=== PATIENT | male | born 1945 | race Caucasian/White ===

== ENCOUNTER 2017-04-01 14:08 | Inpatient (IN) | payer MEDICAID ==
[2017-04-01 14:17] VITALS: BMI 28.5
--- NOTE | 2017-04-01 15:46 | ED PDOC ---
Arrival/HPI - General Chief Complaint: Fever Time Seen by Provider: 04/01/17 14:17 Historian: Patient - History of Present Illness Narrative History of Present Illness (Text): 04/01/17 14:32 Maddy Yee is a 71 year old male, whose past medical history includes Hypertension, Diabetes, diabetic neuropathy, Coronary Artery Disease, ESRD (on hemodyalisis Monday, Monday, Monday), presents to Emergency department complaining of chest discomfort on the left side. The patient was admitted to the hospital more than two weeks ago for chest discomfort, but findings were deemed non-cardiac. The chest discomfort has continued and patient notes it is worse when taking deep breaths. He also reports having mild cough and mild shortness of breath, though TORRES is noticeable. His daughter reports he has had minor relief for the past two days with nsaid use. Patient denies headache, fever, chills, nausea, vomiting, diarrhea, diaphoresis, jaw pain, back pain, lower extremity pain/swelling, or other complaints. Meter Technician: Dr. Thomson Weigher Operator: Dr. Fuentes Time/Duration: > week (2 weeks) Symptom Onset: Gradual Symptom Course: Unchanged (left chest discomfort ) Modifying Factors (Text): Chest pain is worse when taking deep breaths Context: Home Associated Symptoms (Text): mild cough and shortness of breath Past Medical History - Provider Review Nursing Documentation Reviewed: Yes - Cardiac Hx Hypertension: Yes - Endocrine/Metabolic Hx Diabetes Mellitus Type 2: Yes - Genitourinary/Gynecological Hx Prostate Problems: Yes - Psychiatric Hx Psychophysiologic Disorder: No Hx Substance Use: No Family/Social History - Physician Review Nursing Documentation Reviewed: Yes Family/Social History: Unknown Family HX Smoking Status: Never Smoked Hx Alcohol Use: No Hx Substance Use: No Allergies/Home Meds Allergies/Adverse Reactions: Allergies No Known Allergies Allergy (Verified 04/01/17 14:16) Home Medications: Home Meds Medication Instructions Recorded Confirmed Alogliptin Benzoate [Alogliptin] 12.5 mg PO DAILY 04/01/17 04/01/17 Aspirin [Ecotrin] 81 mg PO DAILY 04/01/17 04/01/17 Atorvastatin [Lipitor] 40 mg PO DAILY 04/01/17 04/01/17 B Complex W-C No.20/Folic Acid 1 cap PO DAILY 04/01/17 04/01/17 [Nephrocaps Softgel] Calcium Acetate [Phoslo] 2 tab PO TID 04/01/17 04/01/17 Darbepoetin Conrado [Aranesp] 40 mcg IV QWK 04/01/17 04/01/17 Docusate [Colace] 100 mg PO BID 04/01/17 04/01/17 Doxercalciferol [Hectorol (RENAL)] 3 mcg IV TTS 04/01/17 04/01/17 Glimepiride [amaRYL] 2 mg PO DAILY 04/01/17 04/01/17 Insulin Glargine, Recombina 15 units SC DAILY 04/01/17 04/01/17 [Lantus] Losartan [Cozaar] 25 mg PO DAILY 04/01/17 04/01/17 Pantoprazole [Protonix EC Tab] 40 mg PO DAILY 04/01/17 04/01/17 SITagliptin [Januvia] 25 mg PO DAILY 04/01/17 04/01/17 Tamsulosin [Flomax] 0.4 mg PO DAILY 04/01/17 04/01/17 amLODIPine [Norvasc] 5 mg PO DAILY 04/01/17 04/01/17 Review of Systems - Physician Review All systems were reviewed & negative as marked: Yes - Review of Systems Constitutional: Normal. absent: Fevers Eyes: Normal. absent: Vision Changes ENT: Normal Respiratory: SOB, Cough Cardiovascular: Chest Pain (left chest pain discomfort) Gastrointestinal: Normal. absent: Abdominal Pain, Diarrhea, Nausea, Vomiting Genitourinary Male: Normal. absent: Dysuria Musculoskeletal: Normal. absent: Back Pain Skin: Normal Neurological: Normal. absent: Headache, Dizziness, Speech Changes Endocrine: Normal. absent: Diaphoresis Hemo/Lymphatic: Normal Psychiatric: Normal Physical Exam Vital Signs Reviewed: Yes Vital Signs Temp Pulse Resp BP Pulse Ox 04/01/17 18:11 72 16 126/60 100 04/01/17 15:07 98.3 F 04/01/17 14:30 98.5 F 80 17 124/62 99 Temperature: Afebrile Blood Pressure: Normal Pulse: Regular Respiratory Rate: Normal Appearance: Positive for: Well-Appearing, Non-Toxic, Comfortable Pain Distress: None Mental Status: Positive for: Alert and Oriented X 3 - Systems Exam Head: Present: Atraumatic, Normocephalic Pupils: Present: PERRL Conjunctiva: Present: Normal Mouth: Present: Moist Mucous Membranes Pharnyx: Present: Normal. No: ERYTHEMA, EXUDATE Neck: Present: Normal Range of Motion Respiratory/Chest: Present: Decreased Breath Sounds (decreased breath sound at the left base). No: Accessory Muscle Use Cardiovascular: Present: Regular Rate and Rhythm, Murmurs, Normal S1, S2 Abdomen: Present: Normal Bowel Sounds. No: Tenderness, Distention, Peritoneal Signs Upper Extremity: Present: Normal Inspection. No: Cyanosis, Edema Lower Extremity: Present: Edema (+1 edema ) Neurological: Present: GCS=15, CN II-XII Intact, Speech Normal Skin: Present: Warm, Dry, Normal Color. No: Rashes Psychiatric: Present: Alert, Oriented x 3, Normal Insight, Normal Concentration Medical Decision Making ED Course and Treatment: 04/01/17 14:32 Impression: 71 year old male with left side pleuritic chest discomfort. Differential Diagnosis included but are not limited to: pleural fusion vs. musculoskeletal pain vs. pneumonia vs. cardiac Plan: -- EKG -- CT Chest without contrast -- Chest X-ray -- Labs -- Reassess and disposition Progress notes: EKG: Ordered, reviewed, and independently interpreted the EKG. Rate : 81 BPM Rhythm : NSR Interpretation : QRS 104 with borderline left axis deviation. No ST/T changes compared to 03/16/2017 Comparison : 03/16/2017 04/01/17 17:10 Chest X-ray: Creator : Quentin Delgado MD FINDINGS: LUNGS: There is opacification of the left mid to lower lung field which may in part be due to under penetration and marked cardiomegaly however underlying atelectasis/ infiltrate and effusion on may be present. Minimal right basilar atelectasis. PLEURA: As above. No apparent pneumothorax apparent. CARDIOVASCULAR: Marked cardiomegaly. OSSEOUS STRUCTURES: No significant abnormalities. VISUALIZED UPPER ABDOMEN: Normal. OTHER FINDINGS: None. IMPRESSION: There is opacification of the left mid to lower lung field which may in part be due to under penetration and marked cardiomegaly however underlying atelectasis/ infiltrate and effusion on may be present. Minimal right basilar atelectasis. 04/01/2017 17:37 CT chest: Creator : Quentin Delgado MD COMPARISON: Comparison made with chest radiograph obtained earlier same day FINDINGS: LUNGS: Seen to better advantage is moderate-sized left-sided effusion and left basilar atelectasis. There is a small right-sided effusion and minor right basilar atelectasis. MEDIASTINUM: Heart is mildly enlarged with a moderate - significant pericardial effusion. At ascending thoracic aorta measures approximately 3.6 and descending thoracic aorta measures approximately 2.8 cm. Pulmonary trunk measures approximately 2.55 cm few small nonspecific mediastinal lymph nodes. Central airways are midline and patent. No gross endoluminal lesions seen. There is a tiny hiatal hernia with slight wall thickening of the distal esophagus that could be due to protrusion gastric mucosa. Possibility of esophagitis not excluded. PLEURA: As above. No pneumothorax. BONES: The vertebral bodies exhibit normal stature. No evidence of acute or chronic compression fractures nor retropulsed fragments A-comm. Facets normally aligned. UPPER ABDOMEN:The liver exhibits a somewhat nodular contour. Rule out cirrhosis. OTHER FINDINGS: Minor changes of gynecomastia bilaterally IMPRESSION: Moderate to -large size pericardial effusion. Moderate to large left -sided effusion and mild left basilar atelectasis. . Small right-sided effusion and minor right basilar atelectasis. The liver exhibits a slightly nodular surface contour ; rule out cirrhosis. See above discussion for additional findings and details. Findings discussed with Dr. Smith at approximately 5:30 p.m. with written down and read back written down and read back verification. 04/01/17 19:40 Patient with noted history; labs already present from hemodialysis this morning. Hgb is 8.5, lower than previous; of significant note is the patient's moderate-large pericardial and pleural effusions on CT of the chest today. None of these were present on the CT chest done on 02/03/17. Per patient's daughter, he had an echo done outaptient about 4 weeks ago, which was unremarkable and CXR from recent admission showed NAD. Given these changes in findings, the patient will need observation on tele for imminent cardiology and renal eval - case was discussed with Dr. White, renal, who will arrange for a Monday hemodialysis session tomorrow and also discussed with Dr. Garcia, covering Dr. Carpenter, on-call cardiology. Case discusssed with Dr. Streeter. 04/01/17 21:02 Case was also discussed with the patient's daughter, who is a sheetmetal trades worker. - Lab Interpretations I have reviewed the lab results: Yes - RAD Interpretation Radiology Orders: 04/01/17 15:26 CHEST PORTABLE [RAD] Stat 04/01/17 15:27 CHEST W/O CONTRAST [CT] Stat - EKG Interpretation Interpreted by ED Physician: Yes Type: 12 lead EKG - Scribe Statement The provider has reviewed the documentation as recorded by the Scribe 04/01/2017 Matilda Carrington All medical record entries made by the Scribe were at my direction and personally dictated by me. I have reviewed the chart and agree that the record accurately reflects my personal performance of the history, physical exam, medical decision making, and the department course for this patient. I have also personally directed, reviewed, and agree with the discharge instructions and disposition. Disposition/Present on Arrival - Present on Arrival Any Indicators Present on Arrival: No History of DVT/PE: No History of Uncontrolled Diabetes: No Urinary Catheter: No History of Decub. Ulcer: No History Surgical Site Infection Following: None - Disposition Have Diagnosis and Disposition been Completed?: Yes Diagnosis: Pericardial effusion, Pleural effusion Disposition: HOSPITALIZED Disposition Time: 18:25 Patient Plan: Observation, Telemetry Condition: FAIR
--- NOTE | 2017-04-01 17:06 | RAD ---
HISTORY: L side chest pain COMPARISON: No prior. FINDINGS: LUNGS: There is opacification of the left mid to lower lung field which may in part be due to under penetration and marked cardiomegaly however underlying atelectasis/ infiltrate and effusion on may be present. Minimal right basilar atelectasis. PLEURA: As above. No apparent pneumothorax apparent. CARDIOVASCULAR: Marked cardiomegaly. OSSEOUS STRUCTURES: No significant abnormalities. VISUALIZED UPPER ABDOMEN: Normal. OTHER FINDINGS: None. IMPRESSION: There is opacification of the left mid to lower lung field which may in part be due to under penetration and marked cardiomegaly however underlying atelectasis/ infiltrate and effusion on may be present. Minimal right basilar atelectasis.
--- NOTE | 2017-04-01 17:35 | CT ---
PROCEDURE: CT chest dated 04/01/2017 HISTORY: L side chest pain COMPARISON: Comparison made with chest radiograph obtained earlier same day TECHNIQUE: Contiguous axial images were obtained through the chest without intravenous contrast enhancement. Sagittal and coronal reconstructions were performed. Radiation dose (DLP): 533.25 mGy-cm. This CT exam was performed using one or more of the following dose reduction techniques: Automated exposure control, adjustment of the mA and/or kV according to patient size, and/or use of iterative reconstruction technique. FINDINGS: LUNGS: Seen to better advantage is moderate-sized left-sided effusion and left basilar atelectasis. There is a small right-sided effusion and minor right basilar atelectasis. MEDIASTINUM: Heart is mildly enlarged with a moderate - significant pericardial effusion. At ascending thoracic aorta measures approximately 3.6 and descending thoracic aorta measures approximately 2.8 cm. Pulmonary trunk measures approximately 2.55 cm few small nonspecific mediastinal lymph nodes. Central airways are midline and patent. No gross endoluminal lesions seen. There is a tiny hiatal hernia with slight wall thickening of the distal esophagus that could be due to protrusion gastric mucosa. Possibility of esophagitis not excluded. PLEURA: As above. No pneumothorax. BONES: The vertebral bodies exhibit normal stature. No evidence of acute or chronic compression fractures nor retropulsed fragments A-comm. Facets normally aligned. UPPER ABDOMEN: The liver exhibits a somewhat nodular contour. Rule out cirrhosis. OTHER FINDINGS: Minor changes of gynecomastia bilaterally IMPRESSION: Moderate to -large size pericardial effusion. Moderate to large left-sided effusion and mild left basilar atelectasis. . Small right-sided effusion and minor right basilar atelectasis The liver exhibits a slightly nodular surface contour ; rule out cirrhosis See above discussion for additional findings and details. Findings discussed with Dr. Smith at approximately 5:30 p.m. with written down and read back written down and read back verification.
[2017-04-01] MEDS ORDERED: Naproxen 275 mg Tab PO SCH (22:15)
[2017-04-01] MEDS ORDERED: Linezolid 600 mg in D5W 300 ml 600 MG/300 ML BAG IVPB SCH (23:30)
--- NOTE | 2017-04-01 23:52 | CP.PCM.HP ---
<GONZALO CESPEDES - Last Filed: 04/02/17 04:58> History of Present Illness - History of Present Illness History of Present Illness: Gonzalo Cespedes DO PGY1 - Internal Medicine H&P - Night Float CC: Fever, cough HPI: 71 yo M with PMH of HTN, HLD, Diabetes, diabetic neuropathy, CAD, ESRD (on hemodyalisis T/T/Sat), BPH, and GERD presents to [facility] with complaints of subjective fever and cough that started today during dialysis. Temp was recorded at 99.3, oral. Dry cough associated with retrosternal CP started 3-4 weeks ago, unchanged since it began. Pain is non-radiating, sharp. Also admits to SOB with exertion. He has tried APAP and NSAIDS for the pain, which help. He has not tried anything for the cough. He denies recent illness, sick contacts, chills, N/V/D/C, abdominal pain, bloating, hemoptysis. 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 PMH: ESRD on HD, HLD, HTN, DM with neuropathy, CAD, BPH, GERD PSH: Cataracts, L arm AV fistula Meds: Lantus, Novalog, Alogliptin, Januvia, Carvedilol, Amlodipine, Losartan, Lipitor, Protonix, Aranesp, Colace, Doxercalciferol, Flomax, ASA Soc: Remote history of smoking tobacco, Denies EtOH, Denies Illicits Allergies: NKDA Fhx: None Present on Admission - Present on Admission Any Indicators Present on Admission: Yes History of DVT/PE: No History of Uncontrolled Diabetes: Yes Urinary Catheter: No Decubitus Ulcer Present: No Review of Systems - Constitutional Constitutional: Fever. absent: Chills, Headache, Night Sweats - EENT Eyes: absent: Blurred Vision, Change in Vision Ears: absent: Decreased Hearing, Ear Pain Nose/Mouth/Throat: absent: Epistaxis, Nasal Congestion - Cardiovascular Cardiovascular: Chest Pain. absent: Irregular Heart Rhythm, Pain Radiating to Arm/Neck/Jaw, Leg Edema, Radiating Pain - Respiratory Respiratory: Cough, Dyspnea, Pain with Coughing. absent: Hemoptysis, Dyspnea on Exertion - Gastrointestinal Gastrointestinal: absent: Abdominal Pain, Dyspepsia, Heartburn, Hematemesis, Hematochezia - Genitourinary Genitourinary: absent: Change in Urinary Stream, Dysuria, Hematuria - Musculoskeletal Musculoskeletal: absent: Back Pain, Muscle Weakness - Integumentary Integumentary: absent: Rash - Neurological Neurological: absent: Behavioral Changes, Headaches - Psychiatric Psychiatric: absent: Behavioral Changes, Confusion - Hematologic/Lymphatic Hematologic: absent: Easy Bleeding, Easy Bruising Past Patient History - Past Social History Smoking Status: Never Smoked - CARDIAC Hx Cardiac Disorders: Yes - RENAL Hx Chronic Kidney Disease: Yes Hx Dialysis: Yes - ENDOCRINE/METABOLIC Hx Diabetes Mellitus Type 1: Yes - MUSCULOSKELETAL/RHEUMATOLOGICAL Hx Musculoskeletal Disorders: No - GASTROINTESTINAL Hx Gastrointestinal Disorders: No - GENITOURINARY/GYNECOLOGICAL Hx Prostate Problems: Yes - PSYCHIATRIC Hx Psychophysiologic Disorder: No - SURGICAL HISTORY Hx Surgeries: No Meds Allergies/Adverse Reactions: Allergies Allergy/AdvReac Type Severity Reaction Status Date / Time No Known Allergies Allergy Verified 04/01/17 14:16 Physical Exam - Constitutional Appears: Non-toxic, Chronically Ill Additional comments: In mild distress - Head Exam Head Exam: ATRAUMATIC, NORMOCEPHALIC - Eye Exam Eye Exam: EOMI, Normal appearance - ENT Exam ENT Exam: Mucous Membranes Moist - Neck Exam Neck exam: Positive for: Normal Inspection. Negative for: Meningismus - Respiratory Exam Respiratory Exam: absent: Rales, Rhonchi, Wheezes - Expanded Respiratory Exam Expanded Respiratory: decreased breath sounds: Left (Middle and lower), dullness to percussion: Left (Middle and lower) - Cardiovascular Exam Additional comments: Muffled heart sounds - GI/Abdominal Exam GI & Abdominal Exam: Distended, Soft. absent: Firm, Guarding, Rebound, Rigid, Tenderness - Extremities Exam Extremities exam: Positive for: normal inspection. Negative for: pedal edema - Back Exam Back exam: NORMAL INSPECTION. absent: tenderness, vertebral tenderness - Neurological Exam Neurological exam: Alert, Oriented x3 - Psychiatric Exam Psychiatric exam: Normal Affect, Normal Mood - Skin Skin Exam: Dry, Intact Results - Vital Signs Recent Vital Signs: Last Vital Signs Temp 101 F H 04/01/17 22:03 Pulse 90 04/01/17 22:03 Resp 21 04/01/17 22:03 BP 155/72 H 04/01/17 22:03 Pulse Ox 95 04/01/17 22:03 - Imaging and Cardiology CT scan - chest Status: Report reviewed by me (Pericardial effusion. Pleural effusion) Assessment & Plan - Assessment and Plan (Free Text) Assessment: 71 yo M with PMH of HTN, HLD, Diabetes, diabetic neuropathy, CAD, ESRD (on hemodyalisis T/W/Sat), BPH, and GERD presented to [facility] with complaints of subjective fever and cough that started today during dialysis. CT chest in ED shows moderate pericardial effusion, moderate left pleural effusion and basilar atalectasis, mild right pleural effusion and atalectasis. Later, became febrile to 101 F. Plan: 1. Cough and CP - Likely 2/2 to chronic pericardial and pleural effusion 2/2 uremia vs infectious - Chest XR significant for cardiomegaly and pleural effusion. Chest CT significant for moderate pericardial effusion and moderate left sided pleural effusion and mild right sided pleural effusion. - First and second Troponins negative, pending repeat Troponin. - Serial EKG - Nephro consulted (Christopher), plan for HD tomorrow and Monday - Consult Cardio (Pauline) - Daily CBC and CMP - Incentive spirometry - Ordered echocardiogram 2. FUO - After encounter, patient spiked fever to 101. History concerning for hospital acquired infection - Ordered blood culture, UA, urine C&S - Start Linezolid, PRN APAP - Consult ID (Sathish) 3. ESRD on HD - HD tomorrow and Monday - Resume home meds - Consult nephrology (Christopher) 4. Hx of CAD, HTN, HLD, DM - Resume home meds GI/DVT Ppx - Protonix and SCD Patient seen, discussed, and reviewed with senior resident Dr. Redman PGY2 and attending Dr. Streeter. <Syl ARREDONDO,Abrahan - Last Filed: 04/02/17 08:20> Results - Vital Signs Recent Vital Signs: Last Vital Signs Temp 97.9 F 04/02/17 06:00 Pulse 75 04/02/17 06:00 Resp 20 04/02/17 06:00 BP 146/77 04/02/17 06:00 Pulse Ox 97 04/02/17 06:00 - Labs Result Diagrams: 04/02/17 06:30 04/02/17 06:30 Labs: Laboratory Results - last 24 hr 04/01/17 04/02/17 04/02/17 23:25 00:19 06:30 WBC RBC Hgb Hct MCV MCH MCHC RDW Plt Count MPV Gran % Lymph % (Auto) [place] % (Auto) Eos % (Auto) Baso % (Auto) Gran # Lymph # [place] # Eos # Baso # pO2 VBG pH VBG pCO2 VBG HCO3 VBG O2 Sat (Calc) VBG Base Excess Sodium 138 Potassium 4.3 Chloride 97 L Carbon Dioxide 31 Anion Gap 14 BUN 35 H Creatinine 6.5 H Est GFR ( Amer) 10 Est GFR (Non-Af Amer) 8 POC Glucose (mg/dL) 263 H Random Glucose 149 H Lactic Acid Calcium 8.5 Total Bilirubin 0.6 AST 33 ALT 20 Alkaline Phosphatase 114 Troponin I < 0.01 < 0.01 Total Protein 6.8 Albumin 3.1 Globulin 3.8 Albumin/Globulin Ratio 0.8 L 04/02/17 04/02/17 04/02/17 06:30 06:30 06:30 WBC 10.1 RBC 3.31 L Hgb 9.0 L Hct 28.0 L MCV 84.6 MCH 27.2 MCHC 32.1 RDW 14.9 H Plt Count 302 MPV 9.1 Gran % 72.0 H Lymph % (Auto) 12.3 L [place] % (Auto) 12.6 H Eos % (Auto) 2.9 Baso % (Auto) 0.2 Gran # 7.29 H Lymph # 1.3 [place] # 1.3 H Eos # 0.3 Baso # 0.02 pO2 49 VBG pH 7.39 VBG pCO2 53.0 VBG HCO3 32.1 H VBG O2 Sat (Calc) 89.0 H VBG Base Excess 5.7 H Sodium Potassium Chloride Carbon Dioxide Anion Gap BUN Creatinine Est GFR ( Amer) Est GFR (Non-Af Amer) POC Glucose (mg/dL) Random Glucose Lactic Acid 0.6 L Calcium Total Bilirubin AST ALT Alkaline Phosphatase Troponin I Total Protein Albumin Globulin Albumin/Globulin Ratio Attending/Attestation - Attestation I have personally seen and examined this patient.: Yes I have fully participated in the care of the patient.: Yes I have reviewed all pertinent clinical information: Yes Notes (Text): 04/02/17 08:14 -I agree with the above H&P completed by the resident physician with the following additions and/or changes: The patient is a 71 year old [place] man with a history of ESRD (T/W/Sat), BPH , GERD, CAD, HTN and IDDM who is being admitted with pleural effusion, pericardial effusion and potential healthcare-associated PNA. The effusions may be simply related to fluid overload from ESRD (vs infectious). He will therefore undergo dialysis in the morning by Dr. White to see if there is improvement in the effusions afterwards. Also, a 2D-echo and cards consult has been placed to further evaluate the pericardial effusion. Lastly, since the patient spiked a temp in the ED and given his symptoms of cough (as well as his recent hospital admission), we will start empiric IV antibiotics overnight and consult ID.
[2017-04-02] MEDS: Insulin Detemir 100 units/ml Vial (Levemir) SC SCH ×3 (00:20→21:40)
[2017-04-02] MEDS ORDERED: Pantoprazole 40 mg EC Tab PO SCH ×2 (06:00→10:00)
[2017-04-02] MEDS ORDERED: Piperacillin/Tazobact 2.25gm 2.25 GM/100 ML BAG IVPB SCH (06:00)
[2017-04-02 06:57] LABS: BASO # 0.02 K/mm3 (0.0-2.0); BASO % 0.2 % (0.0-3.0); EOS # 0.3 (0.0-0.7); EOS % 2.9 % (1.5-5.0); GRAN # 7.29 (1.4-6.5); LYMPH # 1.3 (1.2-3.4); LYMPH % 12.3 % (22.0-35.0); MEAN CELL VOLUME 84.6 fL (80.0-105.0); MEAN CORPUSCULAR HEMOGLOBIN 27.2 pg (25.0-35.0); MEAN CORPUSCULAR HGB CONC 32.1 g/dl (31.0-37.0); MEAN PLATELET VOLUME 9.1 fl (7.0-11.0); MONO # 1.3 (0.1-0.6); MONO % 12.6 % (1.0-6.0); PLATELET COUNT 302 10^3/uL (120.0-450.0); RBC 3.31 10^6/uL (3.5-6.1); RED CELL DISTRIBUTION WIDTH 14.9 % (11.5-14.5); WHITE BLOOD COUNT 10.1 10^3/ul (4.5-11.0)
[2017-04-02 07:13] LABS: VENOUS BLOOD GAS BASE EXCESS 5.7 mmol/L (0.0-2.0); VENOUS BLOOD GAS PO2 49 mm/Hg (30-55); VENOUS BLOOD PH 7.39 (7.32-7.43)
[2017-04-02] MEDS ORDERED: Vancomycin 1gm in NS 250ml 1 GM/250 ML BAG IVPB STA (07:13)
[2017-04-02 07:21] LABS: ALB/GLOB RATIO 0.8 (1.1-1.8); ALBUMIN 3.1 g/dL (3.0-4.8); ALT/SGPT 20 U/L (7-56); AST/SGOT 33 U/L (15-59); BLOOD UREA NITROGEN 35 mg/dL (7-21); CALCIUM 8.5 mg/dL (8.4-10.5); GFR AFRICAN-AMERICAN 10; GFR NON-AFRICAN AMERICAN 8
[2017-04-02 07:35] LABS: TROPONIN I < 0.01 ng/mL
[2017-04-02] MEDS: Insulin Regular 1 UNITS/0.01 ML ML SC SCH ×3 (08:40→17:17)
[2017-04-02] MEDS ORDERED: INSULIN GLARGINE RECOMBINA SC SCH (10:00)
--- NOTE | 2017-04-02 10:19 | CARD ---
APPROVED REPORT EKG Measurement Heart [id number] <Conclusion> Normal sinus rhythm Normal ECG
--- NOTE | 2017-04-02 10:30 | CARD ---
APPROVED REPORT EKG Measurement Heart [id number] <Conclusion> Normal sinus rhythm Low voltage QRS Borderline ECG
--- NOTE | 2017-04-02 10:32 | CP.PCM.CON ---
History of Present Illness - History of Present Illness History of Present Illness: renal consult note 71 yo M with PMH of HTN, HLD, Diabetes, diabetic neuropathy, CAD, ESRD (on hemodyalisis T/T/Sat), BPH, and GERD is admitted with low grade fever,and pleuritic chest pain. he finished his dialysis today. on admission underwent Ct scan which showed moderate sized new pericardial effusion. he is seen and examined on dialysis today. he reports pain is controlled. He has been compliant with his dialysis session however has had high pre hd BUN and failed his dialysis clearance earlier in march Review of Systems - Review of Systems All systems: reviewed and no additional remarkable complaints except Past Patient History - Past Social History Smoking Status: Never Smoked - CARDIAC Hx Cardiac Disorders: Yes - RENAL Hx Chronic Kidney Disease: Yes Hx Dialysis: Yes - ENDOCRINE/METABOLIC Hx Diabetes Mellitus Type 1: Yes - MUSCULOSKELETAL/RHEUMATOLOGICAL Hx Musculoskeletal Disorders: No - GASTROINTESTINAL Hx Gastrointestinal Disorders: No - GENITOURINARY/GYNECOLOGICAL Hx Prostate Problems: Yes - PSYCHIATRIC Hx Psychophysiologic Disorder: No - SURGICAL HISTORY Hx Surgeries: No Meds Allergies/Adverse Reactions: Allergies Allergy/AdvReac Type Severity Reaction Status Date / Time No Known Allergies Allergy Verified 04/01/17 14:16 - Medications Medications: Current Medications Acetaminophen (Tylenol 325mg Tab) 650 mg PO Q4H PRN PRN Reason: Fever >100.4 F Aspirin (Aspirin Chewable) 81 mg PO DAILY [facility] Calcium Acetate (Phoslo) 1,334 mg PO WM [facility] Last Admin: 04/02/17 08:39 Dose: 1,334 mg Carvedilol (Coreg) 12.5 mg PO BID [facility] Darbepoetin Conrado (Aranesp) 40 mcg IVP QWK [facility] Docusate Sodium (Colace) 100 mg PO BID [facility] Doxercalciferol (Hectorol) 3 mcg IV TTS [facility] Heparin Sodium (Porcine) (Heparin) 5,000 units SC Q12 [facility] PRN Reason: Protocol Cefepime HCl (Maxipime 1gm) 1 gm in 100 mls @ 100 mls/hr IVPB Q24H [facility] PRN Reason: Protocol Doxycycline Hyclate 100 mg/ (Sodium Chloride) 100 mls @ 100 mls/hr IVPB Q12 [facility] PRN Reason: Protocol Insulin Detemir (Levemir) 7 unit SC HS [facility] Last Admin: 04/02/17 00:20 Dose: 7 unit Insulin Detemir (Levemir) 8 unit SC QAM [facility] Insulin Human Regular (Humulin R) 6 units SC AC [facility] Last Admin: 04/02/17 08:40 Dose: 6 units Losartan Potassium (Cozaar) 25 mg PO DAILY [facility] Pantoprazole Sodium (Protonix Inj) 40 mg IVP DAILY [facility] Tamsulosin HCl (Flomax) 0.4 mg PO DAILY [facility] Vitamin B Complex/Vit C/Folic Acid (Nephro-Gabino) 1 tab PO DAILY [facility] Physical Exam - Constitutional Appears: Non-toxic, No Acute Distress - Head Exam Head Exam: NORMAL INSPECTION - Eye Exam Eye Exam: Normal appearance - ENT Exam ENT Exam: Mucous Membranes Moist - Neck Exam Neck exam: Positive for: Normal Inspection - Respiratory Exam Respiratory Exam: NORMAL BREATHING PATTERN - Cardiovascular Exam Cardiovascular Exam: +S1, +S2 - GI/Abdominal Exam GI & Abdominal Exam: Soft - Extremities Exam Extremities exam: Positive for: normal inspection - Neurological Exam Neurological exam: Alert, Oriented x3 - Psychiatric Exam Psychiatric exam: Normal Affect - Skin Skin Exam: Dry Additional comments: seen and examined on dialysis Results - Vital Signs Recent Vital Signs: Last Vital Signs Temp 97.9 F 04/02/17 06:00 Pulse 75 04/02/17 06:00 Resp 20 04/02/17 06:00 BP 146/77 04/02/17 06:00 Pulse Ox 97 04/02/17 06:00 - Labs Result Diagrams: 04/03/17 06:30 04/03/17 06:30 Labs: Laboratory Results - last 24 hr 04/01/17 04/02/17 04/02/17 23:25 00:19 06:30 WBC RBC Hgb Hct MCV MCH MCHC RDW Plt Count MPV Gran % Lymph % (Auto) [place] % (Auto) Eos % (Auto) Baso % (Auto) Gran # Lymph # [place] # Eos # Baso # pO2 VBG pH VBG pCO2 VBG HCO3 VBG O2 Sat (Calc) VBG Base Excess Sodium 138 Potassium 4.3 Chloride 97 L Carbon Dioxide 31 Anion Gap 14 BUN 35 H Creatinine 6.5 H Est GFR ( Amer) 10 Est GFR (Non-Af Amer) 8 POC Glucose (mg/dL) 263 H Random Glucose 149 H Lactic Acid Calcium 8.5 Total Bilirubin 0.6 AST 33 ALT 20 Alkaline Phosphatase 114 Troponin I < 0.01 < 0.01 Total Protein 6.8 Albumin 3.1 Globulin 3.8 Albumin/Globulin Ratio 0.8 L 04/02/17 04/02/17 04/02/17 06:30 06:30 06:30 WBC 10.1 RBC 3.31 L Hgb 9.0 L Hct 28.0 L MCV 84.6 MCH 27.2 MCHC 32.1 RDW 14.9 H Plt Count 302 MPV 9.1 Gran % 72.0 H Lymph % (Auto) 12.3 L [place] % (Auto) 12.6 H Eos % (Auto) 2.9 Baso % (Auto) 0.2 Gran # 7.29 H Lymph # 1.3 [place] # 1.3 H Eos # 0.3 Baso # 0.02 pO2 49 VBG pH 7.39 VBG pCO2 53.0 VBG HCO3 32.1 H VBG O2 Sat (Calc) 89.0 H VBG Base Excess 5.7 H Sodium Potassium Chloride Carbon Dioxide Anion Gap BUN Creatinine Est GFR ( Amer) Est GFR (Non-Af Amer) POC Glucose (mg/dL) Random Glucose Lactic Acid 0.6 L Calcium Total Bilirubin AST ALT Alkaline Phosphatase Troponin I Total Protein Albumin Globulin Albumin/Globulin Ratio 04/02/17 07:28 WBC RBC Hgb Hct MCV MCH MCHC RDW Plt Count MPV Gran % Lymph % (Auto) [place] % (Auto) Eos % (Auto) Baso % (Auto) Gran # Lymph # [place] # Eos # Baso # pO2 VBG pH VBG pCO2 VBG HCO3 VBG O2 Sat (Calc) VBG Base Excess Sodium Potassium Chloride Carbon Dioxide Anion Gap BUN Creatinine Est GFR ( Amer) Est GFR (Non-Af Amer) POC Glucose (mg/dL) 147 H Random Glucose Lactic Acid Calcium Total Bilirubin AST ALT Alkaline Phosphatase Troponin I Total Protein Albumin Globulin Albumin/Globulin Ratio Assessment & Plan - Assessment and Plan (Free Text) Plan: esrd/pericardial effusion/htn/dm will do extra hd today for clearance lytes reviewed UF minimal as bp soft continue binders anemia: epo per opt dose will review his opt dialysis script on monday
[2017-04-02] MEDS: Cefepime 1gm in NS 100ml 1 GM/100 ML BAG IVPB SCH (10:45)
--- NOTE | 2017-04-02 13:13 | CP.PCM.CON ---
History of Present Illness - History of Present Illness History of Present Illness: 71 year old male with PMH of ESRD on HD, CAD, benign prostatic hyperplasia, GERD , dyslipidemia, DM with peripheral neuropathy, HTN came in to [facility] complaining of subjective fevers associated with shortness of breath and dry cough. The has occasional chest pain as well as dyspnea on exertion. He denies sick contacts, no headache or dizziness, no sore throat, no rhinorrhea, no body aches, no abdominal pain, no diarrhea, no dysuria. In the ED, CXR showed left sided pleural effusion and pericardial effusion. Infectious Diseases consult is requested to further evaluate and manage. Review of Systems - Review of Systems All systems: reviewed and no additional remarkable complaints except (as per HPI ) Past Patient History - Past Social History Smoking Status: Never Smoked - CARDIAC Hx Cardiac Disorders: Yes - RENAL Hx Chronic Kidney Disease: Yes Hx Dialysis: Yes - ENDOCRINE/METABOLIC Hx Diabetes Mellitus Type 1: Yes - MUSCULOSKELETAL/RHEUMATOLOGICAL Hx Musculoskeletal Disorders: No - GASTROINTESTINAL Hx Gastrointestinal Disorders: No - GENITOURINARY/GYNECOLOGICAL Hx Prostate Problems: Yes - PSYCHIATRIC Hx Psychophysiologic Disorder: No - SURGICAL HISTORY Hx Surgeries: No Meds Allergies/Adverse Reactions: Allergies Allergy/AdvReac Type Severity Reaction Status Date / Time No Known Allergies Allergy Verified 04/01/17 14:16 - Medications Medications: Current Medications Acetaminophen (Tylenol 325mg Tab) 650 mg PO Q4H PRN PRN Reason: Fever >100.4 F Aspirin (Aspirin Chewable) 81 mg PO DAILY [facility] Calcium Acetate (Phoslo) 1,334 mg PO WM [facility] Carvedilol (Coreg) 12.5 mg PO BID [facility] Darbepoetin Conrado (Aranesp) 40 mcg IVP QWK [facility] Docusate Sodium (Colace) 100 mg PO BID [facility] Doxercalciferol (Hectorol) 3 mcg IV TTS [facility] Heparin Sodium (Porcine) (Heparin) 5,000 units SC Q12 [facility] PRN Reason: Protocol Piperacillin Sod/Tazobactam Sod (Zosyn 2.25 Gm In 0.9% 100 Ml) 2.25 gm in 100 mls @ 100 mls/hr IVPB Q6 [facility] PRN Reason: Protocol Stop: 04/02/17 12:59 Last Admin: 04/02/17 06:24 Dose: 100 mls/hr Insulin Detemir (Levemir) 7 unit SC HS [facility] Last Admin: 04/02/17 00:20 Dose: 7 unit Insulin Detemir (Levemir) 8 unit SC QAM [facility] Insulin Human Regular (Humulin R) 6 units SC AC [facility] Losartan Potassium (Cozaar) 25 mg PO DAILY [facility] Pantoprazole Sodium (Protonix Inj) 40 mg IVP DAILY [facility] Tamsulosin HCl (Flomax) 0.4 mg PO DAILY [facility] Vitamin B Complex/Vit C/Folic Acid (Nephro-Gabino) 1 tab PO DAILY [facility] Physical Exam - Constitutional Appears: Non-toxic, No Acute Distress - Head Exam Head Exam: NORMAL INSPECTION - ENT Exam ENT Exam: Mucous Membranes Moist - Neck Exam Neck exam: Negative for: Lymphadenopathy, Meningismus - Respiratory Exam Respiratory Exam: Decreased Breath Sounds - Cardiovascular Exam Cardiovascular Exam: +S1, +S2 - GI/Abdominal Exam GI & Abdominal Exam: Soft. absent: Tenderness Results - Vital Signs Recent Vital Signs: Last Vital Signs Temp 97.9 F 04/02/17 06:00 Pulse 75 04/02/17 06:00 Resp 20 04/02/17 06:00 BP 146/77 04/02/17 06:00 Pulse Ox 97 04/02/17 06:00 - Labs Result Diagrams: 04/02/17 06:30 04/02/17 06:30 Labs: Laboratory Results - last 24 hr 04/01/17 04/02/17 04/02/17 23:25 00:19 06:30 WBC 10.1 RBC 3.31 L Hgb 9.0 L Hct 28.0 L MCV 84.6 MCH 27.2 MCHC 32.1 RDW 14.9 H Plt Count 302 MPV 9.1 Gran % 72.0 H Lymph % (Auto) 12.3 L [place] % (Auto) 12.6 H Eos % (Auto) 2.9 Baso % (Auto) 0.2 Gran # 7.29 H Lymph # 1.3 [place] # 1.3 H Eos # 0.3 Baso # 0.02 POC Glucose (mg/dL) 263 H Troponin I < 0.01 Assessment & Plan - Assessment and Plan (Free Text) Plan: Assessment Shortness of breath and chest pain, consider fluid overload with associated left sided pleural effusion and pericardial effusion, R/O HCAP, R/O uremic pericarditis ESRD on HD CAD benign prostatic hyperplasia GERD dyslipidemia DM with peripheral neuropathy HTN Plan Gave a dose of IV Vancomycin and started Cefepime and Doxycycline pending blood cx, PCT; reviewed CT chest which showed the pericardial effusion and left sided effusion - follow up Cardiology and Pulmonary recommendations will monitor clinically
--- NOTE | 2017-04-02 13:43 | CP.PCM.PN ---
<Orestes Barahona - Last Filed: 04/02/17 16:10> Subjective - Date & Time of Evaluation Date of Evaluation: 04/02/17 Time of Evaluation: 13:39 - Subjective Subjective: Medicine progress note for Dr. Reyes - Orestes Barahona PGY2 Patient seen and examined at bedside this morning. Reported that he presented to the ED with subjective fevers, non-productive cough that was associated with substernal chest pain. This morning he reports feeling well and denied chest pain, palpitations, SOB. Tmax on admission has been 101F, presently normothermic. CT reviewed and revealed pericardial and pleural effusion. Discussed case with cardiology, Dr. Garcia who recommended echocardiogram for further evaluation. Objective - Vital Signs/Intake and Output Vital Signs (last 24 hours): Temp Pulse Resp BP Pulse Ox 97.8 F 73 16 155/73 H 97 04/02/17 12:00 04/02/17 12:00 04/02/17 12:00 04/02/17 12:00 04/02/17 06:00 Intake and Output: 04/02/17 04/02/17 06:59 18:59 Intake Total 240 Output Total 0 Balance 240 - Medications Medications: Current Medications Acetaminophen (Tylenol 325mg Tab) 650 mg PO Q4H PRN PRN Reason: Fever >100.4 F Aspirin (Aspirin Chewable) 81 mg PO DAILY [facility] Calcium Acetate (Phoslo) 1,334 mg PO WM [facility] Last Admin: 04/02/17 08:39 Dose: 1,334 mg Carvedilol (Coreg) 12.5 mg PO BID [facility] Darbepoetin Conrado (Aranesp) 40 mcg IVP QWK [facility] Docusate Sodium (Colace) 100 mg PO BID [facility] Doxercalciferol (Hectorol) 3 mcg IV TTS [facility] Heparin Sodium (Porcine) (Heparin) 5,000 units SC Q12 [facility] PRN Reason: Protocol Last Admin: 04/02/17 10:43 Dose: 5,000 units Cefepime HCl (Maxipime 1gm) 1 gm in 100 mls @ 100 mls/hr IVPB Q24H [facility] PRN Reason: Protocol Last Admin: 04/02/17 10:45 Dose: 100 mls/hr Doxycycline Hyclate 100 mg/ (Sodium Chloride) 100 mls @ 100 mls/hr IVPB Q12 [facility] PRN Reason: Protocol Insulin Detemir (Levemir) 7 unit SC HS [facility] Last Admin: 04/02/17 00:20 Dose: 7 unit Insulin Detemir (Levemir) 8 unit SC QAM [facility] Last Admin: 04/02/17 10:45 Dose: 8 unit Insulin Human Regular (Humulin R) 6 units SC AC [facility] Last Admin: 04/02/17 08:40 Dose: 6 units Losartan Potassium (Cozaar) 25 mg PO DAILY [facility] Pantoprazole Sodium (Protonix Inj) 40 mg IVP DAILY [facility] Tamsulosin HCl (Flomax) 0.4 mg PO DAILY [facility] Vitamin B Complex/Vit C/Folic Acid (Nephro-Gabino) 1 tab PO DAILY [facility] - Labs Labs: 04/02/17 06:30 04/02/17 06:30 - Constitutional Appears: Non-toxic, No Acute Distress - Head Exam Head Exam: ATRAUMATIC, NORMAL INSPECTION, NORMOCEPHALIC - Eye Exam Eye Exam: EOMI, PERRL - ENT Exam ENT Exam: Mucous Membranes Moist - Respiratory Exam Respiratory Exam: Decreased Breath Sounds. absent: Rales, Rhonchi, Wheezes Additional comments: decreased breath sounds at the bases bilaterally - Cardiovascular Exam Cardiovascular Exam: RRR, +S1, +S2. absent: Gallop, Rubs - GI/Abdominal Exam GI & Abdominal Exam: absent: Distended, Firm, Guarding, Rigid, Tenderness, Rebound - Neurological Exam Neurological Exam: Alert, Awake, Oriented x3 - Psychiatric Exam Psychiatric exam: Normal Affect, Normal Mood - Skin Skin Exam: Dry, Intact, Normal Color, Warm Assessment and Plan - Assessment and Plan (Free Text) Plan: 71yo male with history of HTN, HLD, Diabetes, diabetic neuropathy, CAD, ESRD on HD (T/W/Sat), BPH, and GERD presented c/o subjective fever and cough. 1. Chest pain -Likely secondary to pericardial and pleural effusion 2/2 uremia vs infectious -EKG reviewed; no acute ST-T wave changes; NSR at 81bpm -CXR reviewed; see below -Chest CT revealed moderate to large pericardial effusion, moderate to large left sided pleural effusion and mild left sided basilar atelectasis; small right -sided effusion and minor right basilar atelectasis; liver exhibits slightly nodular contour (see full report) -Troponin negative x2 -Case discussed with cardiology, Dr. Garcia - pending echocardiogram for further recs -Nephrology consulted, patient to be scheduled for HD today and Monday 2. Fever -Possibly secondary to chronic atelectasis vs HCAP -Tmax of 101F on admission thus far -Chest xray revealed opacification of the left mid to lower lung field which may be due to under penetration and cardiomegaly however underlying atelectasis/ infiltrate and effusion may be present; minimal right basilar atelectasis (see full report) -Lactic acid within normal limits -Procalcitonin within normal limits -Blood culture pending -Patient given a dose of vancomycin as well as started on cefepime and doxycycline per ID recommendations -Legionella antigen pending 3. ESRD on HD -Patient scheduled for HD sessions per nephrology recommendations -Continue home medications -Renal diet 4. Hx of CAD, HTN, HLD, DM, BPH, Anemia -Resume home meds GI/DVT Prophylaxis -Protonix/SCD's Patient seen, discussed, and reviewed with Dr. Reyes <Praful Reyes - Last Filed: 04/03/17 15:21> Objective - Vital Signs/Intake and Output Vital Signs (last 24 hours): Temp Pulse Resp BP Pulse Ox 98.5 F 80 20 149/70 92 L 04/03/17 11:53 04/03/17 14:00 04/03/17 11:53 04/03/17 11:53 04/03/17 05:45 - Medications Medications: Current Medications Acetaminophen (Tylenol 325mg Tab) 650 mg PO Q4H PRN PRN Reason: Fever >100.4 F Last Admin: 04/03/17 06:21 Dose: 650 mg Aspirin (Aspirin Chewable) 81 mg PO DAILY [facility] Last Admin: 04/03/17 09:46 Dose: 81 mg Calcium Acetate (Phoslo) 1,334 mg PO WM [facility] Last Admin: 04/03/17 13:12 Dose: 1,334 mg Carvedilol (Coreg) 12.5 mg PO BID [facility] Last Admin: 04/03/17 09:46 Dose: 12.5 mg Darbepoetin Conrado (Aranesp) 60 mcg IVP QWK [facility] Docusate Sodium (Colace) 100 mg PO BID [facility] Last Admin: 04/03/17 09:46 Dose: 100 mg Doxercalciferol (Hectorol) 3 mcg IV TTS [facility] Cefepime HCl (Maxipime 1gm) 1 gm in 100 mls @ 100 mls/hr IVPB Q24H [facility] PRN Reason: Protocol Last Admin: 04/03/17 06:21 Dose: 100 mls/hr Doxycycline Hyclate 100 mg/ (Sodium Chloride) 100 mls @ 100 mls/hr IVPB Q12 [facility] PRN Reason: Protocol Last Admin: 04/03/17 09:49 Dose: 100 mls/hr Insulin Detemir (Levemir) 7 unit SC HS [facility] Last Admin: 04/02/17 21:40 Dose: Not Given Insulin Detemir (Levemir) 8 unit SC QAM [facility] Last Admin: 04/03/17 09:47 Dose: 8 unit Insulin Human Regular (Humulin R) 6 units SC AC [facility] Last Admin: 04/03/17 13:12 Dose: 6 units Losartan Potassium (Cozaar) 25 mg PO DAILY [facility] Last Admin: 04/03/17 09:46 Dose: 25 mg Pantoprazole Sodium (Protonix Ec Tab) 40 mg PO 0600 [facility] Last Admin: 04/03/17 06:21 Dose: 40 mg Tamsulosin HCl (Flomax) 0.4 mg PO DAILY [facility] Last Admin: 04/03/17 09:46 Dose: 0.4 mg Vitamin B Complex/Vit C/Folic Acid (Nephro-Gabino) 1 tab PO DAILY [facility] Last Admin: 04/03/17 09:46 Dose: 1 tab Attending/Attestation - Attestation I have personally seen and examined this patient.: Yes I have fully participated in the care of the patient.: Yes I have reviewed all pertinent clinical information, including history, physical exam and plan: Yes Notes (Text): 04/03/17 15:18 attending note; Patient seen and examined with resident. Patient is a 71 year old Male with PMH of HTN, HLD, Diabetes, diabetic neuropathy, CAD, ESRD (on hemodyalisis T/T/Sat), BPH, and GERD is admitted with low grade fever,and pleuritic chest pain. CT showed left-sided pleural effusion and pericardial effusion. Patient will get extra hemodialysis today. echocardiogram requested. Cardiology evaluation requested. Fever; currently on doxycycline and Maxipime. ID evaluation appreciated. upon discharge the patient will follow-up with PMD . Patient will continue dialysis with Dr. Thomson. patient will follow-up with cardiology . 04/03/17 15:21
[2017-04-02] MEDS: Multivitamin Vitamin B Complex (Nephro-Vite) Tab PO SCH (17:14)
[2017-04-03 01:53] LABS: URINE BILIRUBIN NEGATIVE (NEGATIVE); URINE BLOOD NEGATIVE (NEGATIVE); URINE GLUCOSE (UA) 250 mg/dL (NEGATIVE); URINE LEUKOCYTE ESTERASE NEGATIVE Leu/uL (NEGATIVE); URINE NITRATE NEGATIVE (NEGATIVE); URINE PROTEIN 100 mg/dL (<30 mg/dL); URINE UROBILINOGEN 0.2 E.U./dL (<1 E.U./dL)
[2017-04-03 01:55] LABS: URINE APPEARANCE SL CLOUDY (CLEAR); URINE COLOR YELLOW (YELLOW)
[2017-04-03 02:04] LABS: URINE EPITHELIAL CELLS 0 - 2 /hpf (0-5); URINE RBC 0 - 2 /hpf (0-2); URINE WBC 0 - 2 /hpf (0-6)
--- NOTE | 2017-04-03 02:15 | CON ---
DATE: 04/01/2017 REASON FOR CONSULTATION: Chest pain, pericardial effusion, and renal failure, on dialysis. HISTORY OF PRESENT ILLNESS: The patient is a 71-year-old male who is known to have hypertension, diabetes, diabetic neuropathy, and coronary artery disease, on hemodialysis, who came to emergency room with sharp chest pain only on deep breathing. He states he has a long history of shortness of breath on exertion, which continued to be the same, no change in that pattern. This chest pain has no relation with exertion, only with deep breathing. The patient's chest x-ray in ER showed cardiomegaly, and CAT scan showed moderate pericardial effusion. There is no history of fever, chills, nausea or vomiting. 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 PAST MEDICAL HISTORY: Positive for hypertension; diabetes; renal failure, on dialysis; coronary artery disease; and history of enlarged prostate. PERSONAL HISTORY: Denies smoking. Denies drinking. ALLERGIES: NO KNOWN ALLERGIES. HOME MEDICATIONS: The patient was on: 1. Aspirin 81 mg daily. 2. Lipitor 40 daily. 3. Amaryl 2 mg daily. 4. Insulin 15 units glargine daily. 5. Cozaar 25 daily. 6. Protonix 40 daily. 7. Januvia 25 mg p.o. daily. REVIEW OF SYSTEMS: All other systems reviewed, positive mentioned in the history. FAMILY HISTORY: Not significant. PHYSICAL EXAMINATION: VITAL SIGNS: Blood pressure 126/60, respirations 16, pulse 72, and temperature 98.3. DIAGNOSTIC DATA: The patient's labs are pending. EKG shows sinus rhythm, Q in III and aVF, suggestive of old inferior wall MA. Chest x-ray shows some cardiomegaly. CT scan of the chest showed moderate pericardial effusion . The patient has also had [id number] left-sided pleural effusion and mild left basilar atelectasis and small right-sided effusion. DIAGNOSES: 1. Moderate pericardial effusion. 2. Pleural effusion. 3. Renal failure, on dialysis. 4. Hypertension. 5. Diabetes mellitus. 6. Coronary artery disease. PLAN: We will do echocardiogram, and we will put the patient on Naprosyn. Renal will arrange the dialysis for patient for both pericardial effusion as well as pleural effusion. We will follow with you closely. Gaviota Garcia MD
[2017-04-03] MEDS: Pantoprazole 40 mg EC Tab PO SCH (06:21)
[2017-04-03] MEDS: Cefepime 1gm in NS 100ml 1 GM/100 ML BAG IVPB SCH (06:21)
[2017-04-03 07:11] LABS: BASO # 0.04 K/mm3 (0.0-2.0); BASO % 0.4 % (0.0-3.0); EOS # 0.5 (0.0-0.7); EOS % 5.3 % (1.5-5.0); GRAN # 6.49 (1.4-6.5); GRAN % 69.5 % (50.0-68.0); HEMOGLOBIN 8.8 gm/dL (14.0-18.0); LYMPH # 1.2 (1.2-3.4); LYMPH % 12.6 % (22.0-35.0); MEAN CELL VOLUME 84.8 fL (80.0-105.0); MEAN CORPUSCULAR HEMOGLOBIN 26.8 pg (25.0-35.0); MEAN CORPUSCULAR HGB CONC 31.7 g/dl (31.0-37.0); MEAN PLATELET VOLUME 9.9 fl (7.0-11.0); MONO # 1.1 (0.1-0.6); MONO % 12.2 % (1.0-6.0); PLATELET COUNT 340 10^3/uL (120.0-450.0); RBC 3.28 10^6/uL (3.5-6.1); WHITE BLOOD COUNT 9.4 10^3/ul (4.5-11.0)
[2017-04-03 07:29] LABS: ALB/GLOB RATIO 0.8 (1.1-1.8); CALCIUM 8.4 mg/dL (8.4-10.5)
[2017-04-03] MEDS: Insulin Regular 1 UNITS/0.01 ML ML SC SCH ×3 (08:38→18:05)
[2017-04-03] MEDS: Multivitamin Vitamin B Complex (Nephro-Vite) Tab PO SCH (09:46)
[2017-04-03] MEDS: Insulin Detemir 100 units/ml Vial (Levemir) SC SCH ×2 (09:47→21:55)
--- NOTE | 2017-04-03 11:51 | CON ---
DATE OF ADMISSION: 04/01/2017 DATE OF SERVICE: 04/02/2017 REASON FOR CONSULTATION: Chest pain, pericardial effusion. HISTORY OF PRESENT ILLNESS: The patient is a 71-year-old male with a past history of hypertension, diabetes, diabetic neuropathy, CAD, chronic renal failure, on dialysis, GERD, presented to the emergency room with fever and cough and also has sharp chest pain on deep inspiration. The patient's CAT scan of the chest showed moderate pericardial effusion. The patient has chest pain today, he is feeling better as compared to yesterday. I started him on Naprosyn yesterday. PHYSICAL EXAMINATION VITAL SIGNS: Blood pressure 155/73, respirations 16, pulse 73, and temperature 97.8. HEENT: Head is normocephalic. Eyes: Pupils normal, conjunctiva slightly pale. NECK: JVP low. Carotids equal. *------* diameter normal. LUNGS: No significant rales. CARDIOVASCULAR: S1, S2. No rubs, soft systolic murmur. ABDOMEN: Soft, nontender. No organomegaly. EXTREMITIES: No clubbing, no cyanosis. LABORATORY DATA: WBC 10.1, hemoglobin 9.0, hematocrit 28.0, and platelets 302. Sodium 138, potassium 4.3, BUN 35, creatinine 6.5. Troponin less than 0.01. The patient is clinically feeling better today. DIAGNOSES: Chest pain, only on deep inspiration, which is improving; renal failure, on dialysis; moderate pericardial effusion; diabetes; diabetic neuropathy; coronary artery disease; benign prostatic hypertrophy; gastroesophageal reflux disease, fever and cough. PLAN: The patient's echo has been ordered. The patient has no signs of any tamponade. With Naprosyn, clinically the patient feels better. The patient is also on aspirin 81 mg daily, Coreg 12.5 mg b.i.d., losartan 25 mg daily, doxycycline hyclate 100 mg IV every 12 hours, and Flomax 0.4 mg daily. Since the patient has pericardial effusion, we will stop the heparin for the time being. The patient is getting 5000 units subcu every 12 hours. We will follow with you. Gaviota Garcia MD [facility] # [id number]
--- NOTE | 2017-04-03 13:07 | CP.PCM.PN ---
Subjective - Date & Time of Evaluation Date of Evaluation: 04/03/17 Time of Evaluation: 12:57 - Subjective Subjective: Follow up Nephrology Consultation Note Assessment: Stable pleuro-pericardial effusion ? uremic Diabetic chronic Kidney Disease (E11.22) Hypertensive Chronic Kidney Disease (I12.0) End stage renal disease (N18.6) dependence on hemodialysis (Z99.2) (TTS) via AVF Anemia (D64.9), Hyperphosphatemia (E83.39), Secondary Hyperparathyroidism (E21.1 ), HTN (I12.0) Plan: Will plan for HD today extra session as ordered. Will plan for routine dialysis tomorrow. Continue with Nephrovite 1 tab/day. PRBC as needed for anemia. On JENNIFER as aranesp 40 mcg q thur, increase to 60 mcg, last Hb 8.8 TSAT 16% ferriitn 2268 Continue with phos binders Continue with hectorol with dialysis. Last PTH level 290 BP control with meds as ordered. Patient on RAAS briana as losartan Glycemic control, Dialysis consistent diet Further work up/management for fever as per primary team Dose meds/antibiotics (if needed) for ESRD status. Avoid fleets enema/magnesium based laxatives. echocardiogram for today. his last Kt/V 1.6 which is good enough and doesn't explain his pleuro/pericardial effusion due to uremia. staff had some issue with cannulating him, will request IR consult for fistulogram. will check c3, c4, YAMIL, DNA Ab. repeat CXR tomorrow post HD. Thanks for allowing me to participate in care of your patient. Will follow patient with you. Please call if any Qs Dr Blade Moncada Office: [phone] Subjective: Noted events overnight. Patients feels okay. Denies chest pain, palpitation, shortness of breath, leg swelling. staff helped in language interpretation Physical Examination: General Appearance: Comfortable, in no acute respiratory distress, co- operative. Vitals reviewed and noted as below Lungs: Normal respiratory rate/effort. Breath sounds bilateral decreased Heart: Normal rate. s1s2 normal. No rub or gallop. Extremities: no edema. Neurological: Patient is alert, awake and oriented to person, place and time. No focal deficit. Strength bilateral appropriate and equal Skin: Warm and dry. Normal turgor. No rash. Palpitation: Normal elasticity for age Abdomen: Abdomen is soft. Bowel sounds +. There is no abdominal tenderness, no guarding/rigidity or organomegaly : kidney or bladder not palpable Access: AVF Labs/imaging reviewed. Past medical history, past surgical history, family history, social history, allergy reviewed Objective - Vital Signs/Intake and Output Vital Signs (last 24 hours): Temp Pulse Resp BP Pulse Ox 98.5 F 80 20 149/70 92 L 04/03/17 11:53 04/03/17 11:53 04/03/17 11:53 04/03/17 11:53 04/03/17 05:45 Intake and Output: 04/03/17 04/03/17 06:59 18:59 Intake Total 620 Output Total 100 Balance 520 - Medications Medications: Current Medications Acetaminophen (Tylenol 325mg Tab) 650 mg PO Q4H PRN PRN Reason: Fever >100.4 F Last Admin: 04/03/17 06:21 Dose: 650 mg Aspirin (Aspirin Chewable) 81 mg PO DAILY [facility] Last Admin: 04/03/17 09:46 Dose: 81 mg Calcium Acetate (Phoslo) 1,334 mg PO WM [facility] Last Admin: 04/03/17 08:42 Dose: 1,334 mg Carvedilol (Coreg) 12.5 mg PO BID [facility] Last Admin: 04/03/17 09:46 Dose: 12.5 mg Darbepoetin Conrado (Aranesp) 40 mcg IVP QWK [facility] Docusate Sodium (Colace) 100 mg PO BID [facility] Last Admin: 04/03/17 09:46 Dose: 100 mg Doxercalciferol (Hectorol) 3 mcg IV TTS [facility] Cefepime HCl (Maxipime 1gm) 1 gm in 100 mls @ 100 mls/hr IVPB Q24H [facility] PRN Reason: Protocol Last Admin: 04/03/17 06:21 Dose: 100 mls/hr Doxycycline Hyclate 100 mg/ (Sodium Chloride) 100 mls @ 100 mls/hr IVPB Q12 [facility] PRN Reason: Protocol Last Admin: 04/03/17 09:49 Dose: 100 mls/hr Insulin Detemir (Levemir) 7 unit SC HS [facility] Last Admin: 04/02/17 21:40 Dose: Not Given Insulin Detemir (Levemir) 8 unit SC QAM [facility] Last Admin: 04/03/17 09:47 Dose: 8 unit Insulin Human Regular (Humulin R) 6 units SC AC [facility] Last Admin: 04/03/17 08:38 Dose: 6 units Losartan Potassium (Cozaar) 25 mg PO DAILY [facility] Last Admin: 04/03/17 09:46 Dose: 25 mg Pantoprazole Sodium (Protonix Ec Tab) 40 mg PO 0600 [facility] Last Admin: 04/03/17 06:21 Dose: 40 mg Tamsulosin HCl (Flomax) 0.4 mg PO DAILY [facility] Last Admin: 04/03/17 09:46 Dose: 0.4 mg Vitamin B Complex/Vit C/Folic Acid (Nephro-Gabino) 1 tab PO DAILY [facility] Last Admin: 04/03/17 09:46 Dose: 1 tab - Labs Labs: 04/03/17 06:30 04/03/17 06:30
[2017-04-03] MEDS ORDERED: Darbepoetin Alfa 40 mcg/ml Inj IVP ONE (13:09)
--- NOTE | 2017-04-03 13:40 | CP.PCM.PN ---
Subjective - Date & Time of Evaluation Date of Evaluation: 04/03/17 Time of Evaluation: 10:20 - Subjective Subjective: Comfortable, not in distress. Currently his chest pain has improved. He has no SOB at rest, but is still having low grade temperatures overnight. Objective - Vital Signs/Intake and Output Vital Signs (last 24 hours): Temp Pulse Resp BP Pulse Ox 100.1 F H 100 H 20 139/70 92 L 04/03/17 06:21 04/03/17 05:45 04/03/17 05:45 04/03/17 05:45 04/03/17 05:45 Intake and Output: 04/02/17 04/03/17 18:59 06:59 Intake Total 180 620 Output Total 100 Balance 180 520 - Medications Medications: Current Medications Acetaminophen (Tylenol 325mg Tab) 650 mg PO Q4H PRN PRN Reason: Fever >100.4 F Last Admin: 04/03/17 06:21 Dose: 650 mg Aspirin (Aspirin Chewable) 81 mg PO DAILY [facility] Last Admin: 04/02/17 17:15 Dose: 81 mg Calcium Acetate (Phoslo) 1,334 mg PO WM [facility] Last Admin: 04/02/17 17:14 Dose: 1,334 mg Carvedilol (Coreg) 12.5 mg PO BID [facility] Last Admin: 04/02/17 17:13 Dose: 12.5 mg Darbepoetin Conrado (Aranesp) 40 mcg IVP QWK [facility] Docusate Sodium (Colace) 100 mg PO BID [facility] Last Admin: 04/02/17 17:14 Dose: 100 mg Doxercalciferol (Hectorol) 3 mcg IV TTS [facility] Cefepime HCl (Maxipime 1gm) 1 gm in 100 mls @ 100 mls/hr IVPB Q24H [facility] PRN Reason: Protocol Last Admin: 04/03/17 06:21 Dose: 100 mls/hr Doxycycline Hyclate 100 mg/ (Sodium Chloride) 100 mls @ 100 mls/hr IVPB Q12 [facility] PRN Reason: Protocol Last Admin: 04/02/17 21:44 Dose: 100 mls/hr Insulin Detemir (Levemir) 7 unit SC HS [facility] Last Admin: 04/02/17 21:40 Dose: Not Given Insulin Detemir (Levemir) 8 unit SC QAM [facility] Last Admin: 04/02/17 10:45 Dose: 8 unit Insulin Human Regular (Humulin R) 6 units SC AC [facility] Last Admin: 04/02/17 17:17 Dose: 6 units Losartan Potassium (Cozaar) 25 mg PO DAILY [facility] Last Admin: 04/02/17 17:15 Dose: 25 mg Pantoprazole Sodium (Protonix Ec Tab) 40 mg PO 0600 [facility] Last Admin: 04/03/17 06:21 Dose: 40 mg Tamsulosin HCl (Flomax) 0.4 mg PO DAILY [facility] Last Admin: 04/02/17 17:15 Dose: 0.4 mg Vitamin B Complex/Vit C/Folic Acid (Nephro-Gabino) 1 tab PO DAILY [facility] Last Admin: 04/02/17 17:14 Dose: 1 tab - Labs Labs: 04/02/17 06:30 04/02/17 06:30 - Constitutional Appears: Non-toxic, No Acute Distress - Head Exam Head Exam: NORMAL INSPECTION - ENT Exam ENT Exam: Mucous Membranes Moist - Neck Exam Neck Exam: absent: Lymphadenopathy, Meningismus - Respiratory Exam Respiratory Exam: Decreased Breath Sounds - Cardiovascular Exam Cardiovascular Exam: +S1, +S2 - GI/Abdominal Exam GI & Abdominal Exam: Soft. absent: Tenderness Assessment and Plan - Assessment and Plan (Free Text) Plan: Assessment Shortness of breath and chest pain, consider fluid overload with associated left sided pleural effusion and pericardial effusion, R/O HCAP, R/O uremic pericarditis ESRD on HD CAD benign prostatic hyperplasia GERD dyslipidemia DM with peripheral neuropathy HTN Plan Gave a dose of IV Vancomycin and will continue Cefepime and Doxycycline (day 2) ; blood cx is negative x 1 day, PCT is only 0.48; reviewed CT chest which showed the pericardial effusion and left sided effusion - Cardiology has started NSAIDs for the patient; follow up Pulmonary recommendations - if the cultures continue to be negative by tomorrow, and the patient remains afebrile, we can de-escalate antibiotics by tomorrow will continue to monitor clinically
--- NOTE | 2017-04-03 16:19 | CP.PCM.PN ---
Addendum entered and electronically signed by Robert Salazar DO 16:41: Please disregard this note - see alternate progress note from the same author for the same date Original Note: <Robert Salazar - Last Filed: 04/03/17 16:40> Subjective - Date & Time of Evaluation Date of Evaluation: 04/03/17 Time of Evaluation: 10:00 - Subjective Subjective: Pt s&e at bedside. Patient states that his pleuritic chest pain has resolved, but his daughter states that it is still present. Patient does state that he is no longer SOB. Patient further denies palpitations and subjective fevers. Tmax was 100.1, and patient has not spiked this temp since 06A on 04/03. Patient currently normothermic. He denies further complaints. Objective - Vital Signs/Intake and Output Vital Signs (last 24 hours): Temp Pulse Resp BP Pulse Ox 98.5 F 80 20 149/70 92 L 04/03/17 11:53 04/03/17 14:00 04/03/17 11:53 04/03/17 11:53 04/03/17 05:45 - Medications Medications: Current Medications Acetaminophen (Tylenol 325mg Tab) 650 mg PO Q4H PRN PRN Reason: Fever >100.4 F Last Admin: 04/03/17 06:21 Dose: 650 mg Aspirin (Aspirin Chewable) 81 mg PO DAILY [facility] Last Admin: 04/03/17 09:46 Dose: 81 mg Calcium Acetate (Phoslo) 1,334 mg PO WM [facility] Last Admin: 04/03/17 13:12 Dose: 1,334 mg Carvedilol (Coreg) 12.5 mg PO BID [facility] Last Admin: 04/03/17 09:46 Dose: 12.5 mg Darbepoetin Conrado (Aranesp) 60 mcg IVP QWK [facility] Docusate Sodium (Colace) 100 mg PO BID [facility] Last Admin: 04/03/17 09:46 Dose: 100 mg Doxercalciferol (Hectorol) 3 mcg IV TTS [facility] Cefepime HCl (Maxipime 1gm) 1 gm in 100 mls @ 100 mls/hr IVPB Q24H [facility] PRN Reason: Protocol Last Admin: 04/03/17 06:21 Dose: 100 mls/hr Doxycycline Hyclate 100 mg/ (Sodium Chloride) 100 mls @ 100 mls/hr IVPB Q12 [facility] PRN Reason: Protocol Last Admin: 04/03/17 09:49 Dose: 100 mls/hr Insulin Detemir (Levemir) 7 unit SC HS [facility] Last Admin: 04/02/17 21:40 Dose: Not Given Insulin Detemir (Levemir) 8 unit SC QAM [facility] Last Admin: 04/03/17 09:47 Dose: 8 unit Insulin Human Regular (Humulin R) 6 units SC AC [facility] Last Admin: 04/03/17 13:12 Dose: 6 units Losartan Potassium (Cozaar) 25 mg PO DAILY [facility] Last Admin: 04/03/17 09:46 Dose: 25 mg Pantoprazole Sodium (Protonix Ec Tab) 40 mg PO 0600 [facility] Last Admin: 04/03/17 06:21 Dose: 40 mg Tamsulosin HCl (Flomax) 0.4 mg PO DAILY [facility] Last Admin: 04/03/17 09:46 Dose: 0.4 mg Vitamin B Complex/Vit C/Folic Acid (Nephro-Gabino) 1 tab PO DAILY [facility] Last Admin: 04/03/17 09:46 Dose: 1 tab <Rangasamy,Ajantha - Last Filed: 04/03/17 17:08> Objective - Vital Signs/Intake and Output Vital Signs (last 24 hours): Temp Pulse Resp BP Pulse Ox 98.5 F 80 20 149/70 92 L 04/03/17 11:53 04/03/17 14:00 04/03/17 11:53 04/03/17 11:53 04/03/17 05:45 - Medications Medications: Current Medications Acetaminophen (Tylenol 325mg Tab) 650 mg PO Q4H PRN PRN Reason: Fever >100.4 F Last Admin: 04/03/17 06:21 Dose: 650 mg Aspirin (Aspirin Chewable) 81 mg PO DAILY [facility] Last Admin: 04/03/17 09:46 Dose: 81 mg Calcium Acetate (Phoslo) 1,334 mg PO WM [facility] Last Admin: 04/03/17 13:12 Dose: 1,334 mg Carvedilol (Coreg) 12.5 mg PO BID [facility] Last Admin: 04/03/17 09:46 Dose: 12.5 mg Darbepoetin Conrado (Aranesp) 60 mcg IVP QWK [facility] Docusate Sodium (Colace) 100 mg PO BID [facility] Last Admin: 04/03/17 09:46 Dose: 100 mg Doxercalciferol (Hectorol) 3 mcg IV TTS [facility] Cefepime HCl (Maxipime 1gm) 1 gm in 100 mls @ 100 mls/hr IVPB Q24H [facility] PRN Reason: Protocol Last Admin: 04/03/17 06:21 Dose: 100 mls/hr Doxycycline Hyclate 100 mg/ (Sodium Chloride) 100 mls @ 100 mls/hr IVPB Q12 [facility] PRN Reason: Protocol Last Admin: 04/03/17 09:49 Dose: 100 mls/hr Insulin Detemir (Levemir) 7 unit SC HS [facility] Last Admin: 04/02/17 21:40 Dose: Not Given Insulin Detemir (Levemir) 8 unit SC QAM [facility] Last Admin: 04/03/17 09:47 Dose: 8 unit Insulin Human Regular (Humulin R) 6 units SC AC [facility] Last Admin: 04/03/17 13:12 Dose: 6 units Losartan Potassium (Cozaar) 25 mg PO DAILY [facility] Last Admin: 04/03/17 09:46 Dose: 25 mg Pantoprazole Sodium (Protonix Ec Tab) 40 mg PO 0600 [facility] Last Admin: 04/03/17 06:21 Dose: 40 mg Tamsulosin HCl (Flomax) 0.4 mg PO DAILY [facility] Last Admin: 04/03/17 09:46 Dose: 0.4 mg Vitamin B Complex/Vit C/Folic Acid (Nephro-Gabino) 1 tab PO DAILY [facility] Last Admin: 04/03/17 09:46 Dose: 1 tab Attending/Attestation - Attestation I have personally seen and examined this patient.: Yes I have fully participated in the care of the patient.: Yes I have reviewed all pertinent clinical information, including history, physical exam and plan: Yes Notes (Text): 04/03/17 17:08 INcomplete note
--- NOTE | 2017-04-03 16:34 | CP.PCM.PN ---
Addendum entered and electronically signed by Robert Salazar DO 17:17: Spoke to Nephrology - patient did receive an extra session of hemodialysis Original Note: <Robert Salazar - Last Filed: 04/03/17 16:41> Subjective - Date & Time of Evaluation Date of Evaluation: 04/03/17 Time of Evaluation: 10:30 - Subjective Subjective: Pt s&e at bedside. Patient states that his pleuritic chest pain has resolved, but his daughter states that it is still present. Patient does state that he is no longer SOB. Patient further denies palpitations and subjective fevers. Tmax was 100.1, and patient has not spiked this temp since 06A on 04/03. Patient currently normothermic. He denies further complaints. Objective - Vital Signs/Intake and Output Vital Signs (last 24 hours): Temp Pulse Resp BP Pulse Ox 98.5 F 80 20 149/70 92 L 04/03/17 11:53 04/03/17 14:00 04/03/17 11:53 04/03/17 11:53 04/03/17 05:45 - Medications Medications: Current Medications Acetaminophen (Tylenol 325mg Tab) 650 mg PO Q4H PRN PRN Reason: Fever >100.4 F Last Admin: 04/03/17 06:21 Dose: 650 mg Aspirin (Aspirin Chewable) 81 mg PO DAILY [facility] Last Admin: 04/03/17 09:46 Dose: 81 mg Calcium Acetate (Phoslo) 1,334 mg PO WM [facility] Last Admin: 04/03/17 13:12 Dose: 1,334 mg Carvedilol (Coreg) 12.5 mg PO BID [facility] Last Admin: 04/03/17 09:46 Dose: 12.5 mg Darbepoetin Conrado (Aranesp) 60 mcg IVP QWK [facility] Docusate Sodium (Colace) 100 mg PO BID [facility] Last Admin: 04/03/17 09:46 Dose: 100 mg Doxercalciferol (Hectorol) 3 mcg IV TTS [facility] Cefepime HCl (Maxipime 1gm) 1 gm in 100 mls @ 100 mls/hr IVPB Q24H [facility] PRN Reason: Protocol Last Admin: 04/03/17 06:21 Dose: 100 mls/hr Doxycycline Hyclate 100 mg/ (Sodium Chloride) 100 mls @ 100 mls/hr IVPB Q12 [facility] PRN Reason: Protocol Last Admin: 04/03/17 09:49 Dose: 100 mls/hr Insulin Detemir (Levemir) 7 unit SC HS [facility] Last Admin: 04/02/17 21:40 Dose: Not Given Insulin Detemir (Levemir) 8 unit SC QAM [facility] Last Admin: 04/03/17 09:47 Dose: 8 unit Insulin Human Regular (Humulin R) 6 units SC AC [facility] Last Admin: 04/03/17 13:12 Dose: 6 units Losartan Potassium (Cozaar) 25 mg PO DAILY [facility] Last Admin: 04/03/17 09:46 Dose: 25 mg Pantoprazole Sodium (Protonix Ec Tab) 40 mg PO 0600 [facility] Last Admin: 04/03/17 06:21 Dose: 40 mg Tamsulosin HCl (Flomax) 0.4 mg PO DAILY [facility] Last Admin: 04/03/17 09:46 Dose: 0.4 mg Vitamin B Complex/Vit C/Folic Acid (Nephro-Gabino) 1 tab PO DAILY [facility] Last Admin: 04/03/17 09:46 Dose: 1 tab - Additional Findings Additional findings: Physical Exam: VS as below Constitutional: a&o x 4, nad Head and Neck: neck supple, no jvd, trachea midline, carotid midline, no cervical/head mass Eyes: jermaine, nonicteric sclera, eom intact ENT: auditory acuity grossly intact, throat not congested, no nasal deformity Cardio: rrr, no m/r/g, no carotid bruit, nml s1, s2 Pulm: no accessory muscle use, equal nml breath sounds bilaterally, ctab Abd:; s/nt/nd, nbs x 4 q, no palpable masses Derm: no rashes, no ulcers, no lesions Extr: no edema, no cyanosis, no calf tenderness, no lesions, no varicosities Neuro: cn II-XII grossly intact Assessment and Plan - Assessment and Plan (Free Text) Assessment: 71yo male with history of HTN, HLD, Diabetes, diabetic neuropathy, CAD, ESRD on HD (T/W/Sat), BPH, and GERD presented c/o subjective fever and cough. 1. Chest pain, likely 2/2 pericardial and pleural effusion 2/2 uremia vs infectious -EKG reviewed; no acute ST-T wave changes; NSR at 81bpm -Chest CT revealed moderate to large pericardial effusion, moderate to large left sided pleural effusion and mild left sided basilar atelectasis; small right -sided effusion and minor right basilar atelectasis; liver exhibits slightly nodular contour (see full report) -Case discussed with cardiology, Dr. Garcia - pending echocardiogram for further recs -Nephrology consulted, patient was supposed to be scheduled for an extra bout of HD today, but have not heard back 2. Fever - resolved -Possibly secondary to chronic atelectasis vs HCAP (unlikely) -Tmax of 101F on admission thus far -Chest xray revealed opacification of the left mid to lower lung field which may be due to under penetration and cardiomegaly however underlying atelectasis/ infiltrate and effusion may be present; minimal right basilar atelectasis (see full report) -Lactic acid within normal limits -Procalcitonin within normal limits -Blood culture pending -Patient given a dose of vancomycin as well as started on cefepime and doxycycline per ID recommendations -Legionella antigen pending 3. ESRD on HD -Patient scheduled for HD sessions per nephrology recommendations -Continue home medications -Renal diet 4. Hx of CAD, HTN, HLD, DM, BPH, Anemia -Resume home meds GI/DVT Prophylaxis -Protonix/SCD's Patient seen, discussed, and reviewed with Dr. Reyes <Praful Ryees - Last Filed: 04/04/17 12:32> Objective - Vital Signs/Intake and Output Vital Signs (last 24 hours): Temp Pulse Resp BP Pulse Ox 98.9 F 89 20 135/59 L 95 04/04/17 12:10 04/04/17 12:10 04/04/17 12:10 04/04/17 12:10 04/04/17 05:41 Intake and Output: 04/04/17 04/04/17 06:59 18:59 Intake Total 100 720 Balance 100 720 - Medications Medications: Current Medications Acetaminophen (Tylenol 325mg Tab) 650 mg PO Q4H PRN PRN Reason: Fever >100.4 F Last Admin: 04/04/17 00:04 Dose: 650 mg Aspirin (Aspirin Chewable) 81 mg PO DAILY [facility] Last Admin: 04/03/17 09:46 Dose: 81 mg Calcium Acetate (Phoslo) 1,334 mg PO WM [facility] Last Admin: 04/03/17 18:00 Dose: 1,334 mg Carvedilol (Coreg) 12.5 mg PO BID [facility] Last Admin: 04/03/17 18:02 Dose: 12.5 mg Darbepoetin Conrado (Aranesp) 60 mcg IVP QWK [facility] Docusate Sodium (Colace) 100 mg PO BID [facility] Last Admin: 04/03/17 18:00 Dose: 100 mg Doxercalciferol (Hectorol) 3 mcg IV TTS [facility] Doxycycline Hyclate (Doryx) 100 mg PO Q12 [facility] PRN Reason: Protocol Stop: 04/10/17 22:01 Ceftriaxone Sodium (Rocephin 1 Gram Ivpb) 1 gm in 100 mls @ 100 mls/hr IVPB DAILY [facility] PRN Reason: Protocol Stop: 04/08/17 10:01 Insulin Detemir (Levemir) 7 unit SC HS [facility] Last Admin: 04/03/17 21:55 Dose: 7 unit Insulin Detemir (Levemir) 8 unit SC QAM [facility] Last Admin: 04/03/17 09:47 Dose: 8 unit Insulin Human Regular (Humulin R) 6 units SC AC [facility] Last Admin: 04/03/17 18:05 Dose: 6 units Losartan Potassium (Cozaar) 25 mg PO DAILY [facility] Last Admin: 04/03/17 09:46 Dose: 25 mg Pantoprazole Sodium (Protonix Ec Tab) 40 mg PO 0600 [facility] Last Admin: 04/04/17 05:17 Dose: 40 mg Tamsulosin HCl (Flomax) 0.4 mg PO DAILY [facility] Last Admin: 04/03/17 09:46 Dose: 0.4 mg Vitamin B Complex/Vit C/Folic Acid (Nephro-Gabino) 1 tab PO DAILY [facility] Last Admin: 04/03/17 09:46 Dose: 1 tab - Labs Labs: 04/04/17 06:30 04/04/17 06:30 Attending/Attestation - Attestation I have personally seen and examined this patient.: Yes I have fully participated in the care of the patient.: Yes I have reviewed all pertinent clinical information, including history, physical exam and plan: Yes Notes (Text): 04/04/17 12:30 attending note; Patient seen and examined with resident. Patient is a 71 year old Male with PMH of HTN, HLD, Diabetes, diabetic neuropathy, CAD, ESRD (on hemodyalisis T/T/Sat), BPH, and GERD is admitted with low grade fever,and pleuritic chest pain. CT showed left-sided pleural effusion and pericardial effusion. Patient got HD on Monday, Monday/ extra treatments. currently denies any chest pain, shortness of breath. echocardiogram did not show any significant effusion. Reviewed with cardiology .. Cardiac enzymes 2 negative. Fever; currently on doxycycline and Maxipime. ID evaluation appreciated. upon discharge the patient will follow-up with PMD . Patient will continue dialysis with Dr. Thomson. patient will follow-up with cardiology . hemodialysis tomorrow. Repeat CT chest ordered. Case discussed with patient's daughter in detail.
[2017-04-03 16:44] LABS: COMPLEMENT C4 41.4 mg/dL (14.0-44.0)
--- NOTE | 2017-04-03 19:13 | CARD ---
APPROVED REPORT EXAM: Two-dimensional and M-mode echocardiogram with Doppler and color Doppler. INDICATION Pericardial Effusion 2D DIMENSIONS Left Atrium (2D)3.5 (1.6-4.0cm)IVSd1.5 (0.7-1.1cm) LVDd4.6 (3.9-5.9cm)PWd1.5 (0.7-1.1cm) LVDs3.2 (2.5-4.0cm)FS (%) 30.0 % LVEF (%)57.2 (>50%) M-Mode DIMENSIONS Aortic Root2.90 (2.2-3.7cm)Aortic Cusp Exc.1.70 (1.5-2.0cm) Aortic Valve AoV Peak Wafgushx403.0cm/Tanisha Peak GR.13mmHg Mitral Valve MV E Yauvdecl80.8cm/sMV A Jrqubugf910.0cm/sE/A ratio0.8 TDI E/Lateral E'0.0E/Medial E'0.0 Tricuspid Valve TR Peak Ygypvofr028ih/sRAP [id number] Peak Gr.11mmHg [id number] LEFT VENTRICLE The left ventricle is normal size. There is mild to moderate concentric left ventricular hypertrophy. The left ventricular function is normal.EFG-55-60% The left ventricular ejection fraction is within the normal range. There is normal LV segmental wall motion. Transmitral Doppler flow pattern is Grade III-reversible restrictive diastolic dysfunction. No left ventricle thrombus noted on this study. There is no ventricular septal defect visualized. There is no left ventricular aneurysm. There is no mass noted in the left ventricle. RIGHT VENTRICLE The right ventricle is normal size. There is normal right ventricular wall thickness. The right ventricular systolic function is normal. ATRIA The left atrium size is normal. The right atrium size is normal. The interatrial septum is intact with no evidence for an atrial septal defect. AORTIC VALVE The aortic valve is calcified but opens well. No aortic regurgitation is present. There is no aortic valvular stenosis. There is no aortic valvular vegetation. MITRAL VALVE The mitral valve is thickened but opens well. Mitral annular calcification is mild. There is no mitral valve regurgitation noted. There is no mitral valve stenosis. There is no evidence of mitral valve prolapse. TRICUSPID VALVE The tricuspid valve leaflets are thickened , but open well. There is trace to mild tricuspid regurgitation.RVSP-19 mmof Hg. There is no tricuspid valve stenosis. There is no tricuspid valve prolapse or vegetation. PULMONIC VALVE The pulmonary valve is normal in structure. There is no pulmonic valvular regurgitation. There is no pulmonic valvular stenosis. GREAT VESSELS The aortic root is normal in size. The ascending aorta is normal in size. The pulmonary artery is normal. The IVC is normal in size and collapses >50% with inspiration. PERICARDIAL EFFUSION There is no pleural effusion. There is no pericardial effusion. <Conclusion> The left ventricle is normal size. There is mild to moderate concentric left ventricular hypertrophy. The left ventricular function is normal.EF_55-60% There is no mitral valve regurgitation noted. There is trace to mild tricuspid regurgitation.RVSP-19 mmof Hg. The IVC is normal in size and collapses >50% with inspiration.
[2017-04-04] MEDS: Pantoprazole 40 mg EC Tab PO SCH (05:17)
--- NOTE | 2017-04-04 06:23 | CON ---
CARDIOLOGY CONSULTATION REASON FOR CONSULTATION: Pericardial effusion. HISTORY OF PRESENT ILLNESS: The patient is a 71-year-old [place] male who has a history of hypertension, diabetes mellitus, end-stage renal disease, on hemodialysis 3 times a week for the past 21 months. The patient is being followed by his physical optics teacher Dr. Saldaña as an outpatient, underwent stress test at [facility], and was showed it was normal. The patient was supposed to follow up with his physical optics teacher and an appointment scheduled for today; however, he was admitted because of chest pain that increases with deep breathing. The patient underwent chest CT scan, which revealed [id number] size pericardial effusion, [id number] left pleural effusion, and mild left basilar atelectasis, small right pleural effusion, and fatty nodular liver contour. The patient underwent emergency hemodialysis yesterday and scheduled to undergo hemodialysis today. SOCIAL HISTORY: The patient is a nonsmoker and nondrinker. MEDICATIONS: 1. Aranesp 40 mcg intravenously weekly. 2. Aspirin 81 mg once a day. 3. Colace 100 mg twice a day. 4. Coreg 12.5 mg twice a day. 5. Cozaar 25 mg twice a day. 6. Doxycycline 100 mg intravenously q.12 hours. 7. Flomax 0.4 mg daily. REVIEW OF SYSTEMS: No fever or chills. No vomiting or diarrhea. PHYSICAL EXAMINATION GENERAL: The patient is an elderly male who does not appear to be in acute distress. VITAL SIGNS: Blood pressure 149/70, heart rate 80, temperature 98.5, respirations 20, temperature earlier was 100.1 and on 15th, it was 100.2. HEENT: Pale conjunctivae. NECK: No JVD. CHEST: Absent breath sounds at the lower bases. LUNGS: S1 and S2 regular. No gallop or rub. ABDOMEN: Soft. EXTREMITIES: No edema. LABORATORY DATA: Hemoglobin and hematocrit 8.8 and 27.8 and white count and platelet count are within normal limits. Chem-7 sodium 138, potassium 4.4, chloride 97, CO2 of 29, glucose 170, BUN 36, and creatinine 5.7. Urine Legionella pneumophila antigen is negative. EKG on admission revealed sinus risk, low voltage QRS. ASSESSMENT: 1. Pleuritic chest pain. 2. Pericardial effusion. 3. End-stage renal disease, on hemodialysis. 4. Anemia. 5. Fever consider underlying pneumonia. RECOMMENDATIONS: Continue aspirin 81 mg once a day, Coreg 12.5 mg twice a day, Cozaar 25 mg once a day, and IV Maxipime at 1 g daily. I did review the echo cardiac study performed today and reviewed small pericardial effusion, no evidence of tamponade. Follow up blood cultures, which are negative after 24 hours. Bryan Carpenter MD [facility] # [id number]
[2017-04-04 06:57] LABS: BASO # 0.03 K/mm3 (0.0-2.0); BASO % 0.3 % (0.0-3.0); EOS # 0.3 (0.0-0.7); GRAN # 8.08 (1.4-6.5); GRAN % 73.3 % (50.0-68.0); HEMOGLOBIN 8.8 gm/dL (14.0-18.0); LYMPH # 1.4 (1.2-3.4); LYMPH % 12.3 % (22.0-35.0); MEAN CELL VOLUME 84.3 fL (80.0-105.0); MEAN CORPUSCULAR HEMOGLOBIN 27.1 pg (25.0-35.0); MEAN CORPUSCULAR HGB CONC 32.1 g/dl (31.0-37.0); MEAN PLATELET VOLUME 9.8 fl (7.0-11.0); MONO # 1.2 (0.1-0.6); MONO % 11.1 % (1.0-6.0); PLATELET COUNT 363 10^3/uL (120.0-450.0); RBC 3.25 10^6/uL (3.5-6.1); RED CELL DISTRIBUTION WIDTH 14.8 % (11.5-14.5)
[2017-04-04] MEDS: Insulin Regular 1 UNITS/0.01 ML ML SC SCH ×3 (07:30→17:03)
[2017-04-04 07:32] LABS: ALB/GLOB RATIO 0.8 (1.1-1.8); ALBUMIN 3.2 g/dL (3.0-4.8); CALCIUM 8.7 mg/dL (8.4-10.5)
[2017-04-04] MEDS ORDERED: Lidocaine 2% Inj (20ml) ONE (09:52)
[2017-04-04] MEDS: Insulin Detemir 100 units/ml Vial (Levemir) SC SCH (10:00)
[2017-04-04] MEDS ORDERED: Doxercalciferol 4 mcg/2 ml Inj IV SCH (10:00)
[2017-04-04] MEDS ORDERED: Iodixanol 320 MG/ML 100 ML BOTTLE IV ONE ×2 (10:06→11:18)
[2017-04-04] MEDS ORDERED: Midazolam 2 MG/2 ML VIAL ONE ×2 (10:06→10:59)
[2017-04-04] MEDS ORDERED: Barium Sulfate Susp 2.1% w/v, 2.0% w/w 450 mL Bottle PO ONE (10:57)
[2017-04-04] MEDS: Multivitamin Vitamin B Complex (Nephro-Vite) Tab PO SCH (13:09)
--- NOTE | 2017-04-04 13:24 | CP.PCM.PN ---
Subjective - Date & Time of Evaluation Date of Evaluation: 04/04/17 Time of Evaluation: 13:20 - Subjective Subjective: Follow up Nephrology Consultation Note Assessment: Stable pleuro-pericardial effusion ? viral versus fluid overload. ? component of uremia GERD Diabetic chronic Kidney Disease (E11.22) Hypertensive Chronic Kidney Disease (I12.0) End stage renal disease (N18.6) dependence on hemodialysis (Z99.2) (TTS) via AVF Anemia (D64.9), Hyperphosphatemia (E83.39), Secondary Hyperparathyroidism (E21.1 ), HTN (I12.0) Plan: routine dialysis today as ordered. Continue with Nephrovite 1 tab/day. PRBC as needed for anemia. On JENNIFER as aranesp 40 mcg q thur, increase to 60 mcg, last Hb 8.8 TSAT 16% ferriitn 2268 Continue with phos binders Continue with hectorol with dialysis. Last PTH level 290 BP control with meds as ordered. Patient on RAAS briana as losartan. pt takes norvasc 5 mg/day as outpt, not needed from renal perspective as BP controlled here without it. pt advised to takes medications as prescribed. Glycemic control, Dialysis consistent diet Further work up/management for fever as per primary team Dose meds/antibiotics (if needed) for ESRD status. Avoid fleets enema/magnesium based laxatives. his last Kt/V 1.6 after repeat of 1.2, is good enough and doesn't explain his pleuro/pericardial effusion due to uremia. staff had some issue with cannulating him, IR fistulogram appreciated c3, c4, YAMIL, DNA Ab, ANCA sent repeat CXR today post HD. d/w daughter and primary team that CXR will be sufficient to guide further fluid management, all agreeable. d/c CT chest As outpt will increase his time by 15 min and lower down the EDW. Thanks for allowing me to participate in care of your patient. Will follow patient with you. Please call if any Qs Dr Blade Moncada Office: [phone] Subjective: Noted events overnight. Patients feels okay. Denies chest pain, palpitation, shortness of breath, leg swelling. daughter helped in language interpretation Physical Examination: General Appearance: Comfortable, in no acute respiratory distress, co- operative. Vitals reviewed and noted as below Lungs: Normal respiratory rate/effort. Breath sounds bilateral improved Heart: Normal rate. s1s2 normal. No rub or gallop. Extremities: no edema. Neurological: Patient is alert, awake and oriented to person, place and time. No focal deficit. Strength bilateral appropriate and equal Skin: Warm and dry. Normal turgor. No rash. Palpitation: Normal elasticity for age Abdomen: Abdomen is soft. Bowel sounds +. There is no abdominal tenderness, no guarding/rigidity or organomegaly : kidney or bladder not palpable Access: AVF Labs/imaging reviewed. Past medical history, past surgical history, family history, social history, allergy reviewed Objective - Vital Signs/Intake and Output Vital Signs (last 24 hours): Temp Pulse Resp BP Pulse Ox 98.9 F 90 18 123/73 95 04/04/17 12:25 04/04/17 13:08 04/04/17 12:25 04/04/17 13:08 04/04/17 05:41 Intake and Output: 04/04/17 04/04/17 06:59 18:59 Intake Total 100 720 Balance 100 720 - Medications Medications: Current Medications Acetaminophen (Tylenol 325mg Tab) 650 mg PO Q4H PRN PRN Reason: Fever >100.4 F Last Admin: 04/04/17 00:04 Dose: 650 mg Aspirin (Aspirin Chewable) 81 mg PO DAILY [facility] Last Admin: 04/04/17 13:08 Dose: 81 mg Calcium Acetate (Phoslo) 1,334 mg PO WM [facility] Last Admin: 04/04/17 13:09 Dose: 1,334 mg Carvedilol (Coreg) 12.5 mg PO BID [facility] Last Admin: 04/04/17 13:09 Dose: 12.5 mg Darbepoetin Conrado (Aranesp) 60 mcg IVP QWK [facility] Docusate Sodium (Colace) 100 mg PO BID [facility] Last Admin: 04/04/17 13:09 Dose: 100 mg Doxercalciferol (Hectorol) 3 mcg IV TTS [facility] Doxycycline Hyclate (Doryx) 100 mg PO Q12 [facility] PRN Reason: Protocol Stop: 04/10/17 22:01 Ceftriaxone Sodium (Rocephin 1 Gram Ivpb) 1 gm in 100 mls @ 100 mls/hr IVPB DAILY [facility] PRN Reason: Protocol Stop: 04/08/17 10:01 Insulin Detemir (Levemir) 7 unit SC HS [facility] Last Admin: 04/03/17 21:55 Dose: 7 unit Insulin Detemir (Levemir) 8 unit SC QAM [facility] Last Admin: 04/03/17 09:47 Dose: 8 unit Insulin Human Regular (Humulin R) 6 units SC AC [facility] Last Admin: 04/03/17 18:05 Dose: 6 units Losartan Potassium (Cozaar) 25 mg PO DAILY [facility] Last Admin: 04/04/17 13:08 Dose: 25 mg Pantoprazole Sodium (Protonix Ec Tab) 40 mg PO 0600 [facility] Last Admin: 04/04/17 05:17 Dose: 40 mg Tamsulosin HCl (Flomax) 0.4 mg PO DAILY [facility] Last Admin: 04/04/17 13:09 Dose: 0.4 mg Vitamin B Complex/Vit C/Folic Acid (Nephro-Gabino) 1 tab PO DAILY [facility] Last Admin: 04/04/17 13:09 Dose: 1 tab - Labs Labs: 04/04/17 06:30 04/04/17 06:30
--- NOTE | 2017-04-04 14:05 | PN ---
DATE: 04/04/2017 SUBJECTIVE: The patient seen early this morning in room 265, bed #2, no fevers and no chills, is comfortable. Case discussed with the nurse caring for the patient. Patient had an uneventful night. The patient does have a low grade temperature. PHYSICAL EXAMINATION: VITAL SIGNS: Temperature of 100, blood pressure is 120/70, repertory rate of 20, heart rate of 92. HEENT: Unremarkable. NECK: Supple. LUNGS: Decreased breath sounds. HEART: Normal S1 and S2. ABDOMEN: Soft, nontender. LABORATORY DATA: [place] [address], hemoglobin of 8, platelets of 363. BUN of 37 and creatinine of 5.6 and urinalysis is noted, immunology is noted. Serology, urine for legionella antigen is negative. Microbiology reveals a blood cultures are no growth. Urine cultures are no growth. ASSESSMENT AND PLAN: A 71-year-old male with shortness of breath and chest pain, considered fluid overload and left sided pleural effusion and pericardial effusion and even the patient with a end-stage renal diseases and hemodialysis, coronary artery diseases, BPH and dose of vancomycin was given. The patient on cefepime and doxycycline day #3 but culture is negative, procalcitonin is negative and currently blood cultures are reported to be no growth at 48 hours. Urine cultures are negative. We will change the patient to p.o. doxycycline and discontinue the cefepime. Review of the white count is normal, LFTs are normal. The patient does haven an alkaline phosphatase elevation of 146. We will order an ultrasound of the gallbladder and CAT scan of the abdomen ceftriaxone and the p.o doxycycline pending GI workup. We will follow with you. Faheem Bower MD
--- NOTE | 2017-04-04 14:21 | VASCULAR ---
PROCEDURE: 1. Left upper extremity AV fistula angiogram 2. Perianastomotic venous angioplasty HISTORY: End-stage renal disease. Malfunctioning AV access PHYSICIAN(S): Christ Mena MD. TECHNIQUE: The relative risks and indications of the procedure were explained to the patient and consent obtained. The patient was placed supine on the angiography table and the left arm prepped and draped in usual sterile fashion. Conscious sedation and monitoring provided throughout the procedure by a nurse. The left arm AV fistula was punctured near the elbow in an antegrade direction with a micropuncture set. A 5 Maldivian catheter was placed. An overlapping left upper extremity AV fistula angiogram was performed. Central venous imaging was obtained. A blood pressure cuff was applied near the access site and reflux of the arterial anastomosis performed. There is narrowing of the perianastomotic portion of the AV fistula. A 6 Maldivian sheath was placed. The perianastomotic portion of the AV fistula was dilated with a 6 mm x 4 cm balloon. Brisk antegrade flow was demonstrated. Completion angiograms were obtained. The sheath was removed and hemostasis obtained with a purse- string suture. The patient tolerated the procedure well. FINDINGS: The patient's left brachial - cephalic fistula is patent. There is a 3 cm smooth narrowing of the. Anastomotic region. Two small pseudoaneurysms are noted in the left cephalic vein above the elbow. The left cephalic vein is patent and continuous. The left axillary vein, left subclavian vein, left innominate vein, and SVC are patent. IMPRESSION: 1. Patent left upper extremity brachial-cephalic fistula. 2. Successful dilatation of the perianastomotic venous segment with a 6 mm x 4 cm balloon. 3. The fistula is fairly well developed with patent central veins.
[2017-04-04] MEDS: Cefepime 1gm in NS 100ml 1 GM/100 ML BAG IVPB SCH (15:56)
[2017-04-04 16:18] VITALS: O2SAT 98
[2017-04-04 18:19] VITALS: BP 159/76; PULSE 94; RESP 20; TEMP 99.2
--- NOTE | 2017-04-04 18:25 | CT ---
PROCEDURE: CT Abdomen and Pelvis with contrast HISTORY: r/o gb ds COMPARISON: None. TECHNIQUE: Contrast dose: Oral contrast only. Radiation dose: Total exam DLP = 1009.98 mGy-cm. This CT exam was performed using one or more of the following dose reduction techniques: Automated exposure control, adjustment of the mA and/or kV according to patient size, and/or use of iterative reconstruction technique. FINDINGS: LOWER THORAX: Stable bilateral pleural effusions and associated consolidative changes left greater than right. Stable pericardial effusion. LIVER: Cirrhotic appearance, configuration of the liver without focal hepatic mass. GALLBLADDER AND BILE DUCTS: Cholelithiasis without CT evidence of acute cholecystitis. PANCREAS: Unremarkable. No gross lesion or ductal dilatation. SPLEEN: Unremarkable. ADRENALS: Unremarkable. No mass. KIDNEYS AND URETERS: Atrophic kidneys bilaterally. 3 cm cyst left kidney. VASCULATURE: Unremarkable. No aortic aneurysm. BOWEL: Unremarkable. No obstruction. No gross mural thickening. Diverticulosis without an acute inflammatory component or other associated pathologic process. APPENDIX: Normal appendix. PERITONEUM: Unremarkable. No free fluid. No free air. LYMPH NODES: Unremarkable. No enlarged lymph nodes. BLADDER: Contrast in the bladder presumably from prior procedure involving administration of iodinated contrast. REPRODUCTIVE: Prostatic enlargement BONES: No acute fracture. OTHER FINDINGS: None. IMPRESSION: Cholelithiasis without CT evidence of acute cholecystitis. Additional benign and/or incidental findings described above.
--- NOTE | 2017-04-04 18:42 | CP.PCM.DIS ---
<Robert Salazar - Last Filed: 04/04/17 19:06> Provider - Provider Date of Admission: 04/03/17 14:11 Attending physician: Praful Reyes MD Primary care physician: Kelechi Godwin MD Time Spent in preparation of Discharge (in minutes): 45 Hospital Course - Lab Results Lab Results: Most Recent Lab Values WBC 11.0 10^3/ul (4.5-11.0) 04/04/17 06:30 RBC 3.25 10^6/uL (3.5-6.1) L 04/04/17 06:30 Hgb 8.8 gm/dL (14.0-18.0) L 04/04/17 06:30 Hct 27.4 % (42.0-52.0) L 04/04/17 06:30 MCV 84.3 fL (80.0-105.0) 04/04/17 06:30 MCH 27.1 pg (25.0-35.0) 04/04/17 06:30 MCHC 32.1 g/dl (31.0-37.0) 04/04/17 06:30 RDW 14.8 % (11.5-14.5) H 04/04/17 06:30 Plt Count 363 10^3/uL (120.0-450.0) 04/04/17 06:30 MPV 9.8 fl (7.0-11.0) 04/04/17 06:30 Gran % 73.3 % (50.0-68.0) H 04/04/17 06:30 Lymph % (Auto) 12.3 % (22.0-35.0) L 04/04/17 06:30 Floyd % (Auto) 11.1 % (1.0-6.0) H 04/04/17 06:30 Eos % (Auto) 3.0 % (1.5-5.0) 04/04/17 06:30 Baso % (Auto) 0.3 % (0.0-3.0) 04/04/17 06:30 Gran # 8.08 (1.4-6.5) H 04/04/17 06:30 Lymph # 1.4 (1.2-3.4) 04/04/17 06:30 Floyd # 1.2 (0.1-0.6) H 04/04/17 06:30 Eos # 0.3 (0.0-0.7) 04/04/17 06:30 Baso # 0.03 K/mm3 (0.0-2.0) 04/04/17 06:30 pO2 49 mm/Hg (30-55) 04/02/17 06:30 VBG pH 7.39 (7.32-7.43) 04/02/17 06:30 VBG pCO2 53.0 (40-60) 04/02/17 06:30 VBG HCO3 32.1 mmol/l (21-28) H 04/02/17 06:30 VBG O2 Sat (Calc) 89.0 % (40-65) H 04/02/17 06:30 VBG Base Excess 5.7 mmol/L (0.0-2.0) H 04/02/17 06:30 Sodium 136 mmol/L (132-148) 04/04/17 06:30 Potassium 4.3 mmol/L (3.6-5.0) 04/04/17 06:30 Chloride 96 mmol/L (98-107) L 04/04/17 06:30 Carbon Dioxide 29 mmol/L (21-33) 04/04/17 06:30 Anion Gap 15 (10-20) 04/04/17 06:30 BUN 37 mg/dL (7-21) H 04/04/17 06:30 Creatinine 5.6 mg/dL (0.5-1.4) H 04/04/17 06:30 Est GFR ( Amer) 12 04/04/17 06:30 Est GFR (Non-Af Amer) 10 04/04/17 06:30 POC Glucose (mg/dL) 303 mg/dL (65-110) H 04/04/17 16:19 Random Glucose 210 mg/dL (70-110) H 04/04/17 06:30 Lactic Acid 0.6 mmol/L (0.7-2.1) L 04/02/17 06:30 Calcium 8.7 mg/dL (8.4-10.5) 04/04/17 06:30 Total Bilirubin 0.6 mg/dL (0.2-1.3) 04/04/17 06:30 AST 49 U/L (15-59) 04/04/17 06:30 ALT 12 U/L (7-56) 04/04/17 06:30 Alkaline Phosphatase 146 U/L (38-133) H 04/04/17 06:30 Troponin I < 0.01 ng/mL 04/02/17 06:30 Total Protein 7.0 g/dL (5.8-8.3) 04/04/17 06:30 Albumin 3.2 g/dL (3.0-4.8) 04/04/17 06:30 Globulin 3.8 gm/dL 04/04/17 06:30 Albumin/Globulin Ratio 0.8 (1.1-1.8) L 04/04/17 06:30 Procalcitonin 0.48 NG/ML (0.19-0.49) 04/02/17 08:00 Urine Color Yellow (YELLOW) 04/03/17 01:30 Urine Appearance Sl cloudy (CLEAR) 04/03/17 01:30 Urine pH 8.0 (4.7-8.0) 04/03/17 01:30 Ur Specific [place] 1.015 (1.005-1.035) 04/03/17 01:30 Urine Protein 100 mg/dL (<30 mg/dL) H 04/03/17 01:30 Urine Glucose (UA) 250 mg/dL (NEGATIVE) H 04/03/17 01:30 Urine Ketones Negative mg/dL (NEGATIVE) 04/03/17 01:30 Urine Blood Negative (NEGATIVE) 04/03/17 01:30 Urine Nitrate Negative (NEGATIVE) 04/03/17 01:30 Urine Bilirubin Negative (NEGATIVE) 04/03/17 01:30 Urine Urobilinogen 0.2 E.U./dL (<1 E.U./dL) 04/03/17 01:30 Ur Leukocyte Esterase Negative Shahana/uL (NEGATIVE) 04/03/17 01:30 Urine RBC 0 - 2 /hpf (0-2) 04/03/17 01:30 Urine WBC 0 - 2 /hpf (0-6) 04/03/17 01:30 Ur Epithelial Cells 0 - 2 /hpf (0-5) 04/03/17 01:30 YAMIL Screen Negative (Negative) 04/03/17 08:30 Complement C3 125.0 mg/dL (88.0-165.0) 04/03/17 08:30 Complement C4 41.4 mg/dL (14.0-44.0) 04/03/17 08:30 Ur L.pneumophila Ag Negative (NEGATIVE) 04/03/17 01:30 - Hospital Course Hospital Course: 71 yo M with PMH of HTN, HLD, Diabetes, diabetic neuropathy, CAD, ESRD (on hemodyalisis T/T/Sat), BPH, and GERD presented with complaints of subjective fever and cough that started on 04/01/17 during dialysis. Temp was recorded at 99.3, oral. The dry cough was associated with retrosternal CP started 3-4 weeks before admission, unchanged since it began. Pain was non-radiating, sharp. Also c/o to SOB with exertion. He has tried APAP and NSAIDS for the pain, which help. He has not tried anything for the cough. He denied recent illness, sick contacts, chills, N/V/D/C, abdominal pain, bloating, hemoptysis. Throughout the course, patient was found to have a pleural effusion, but minor. He was given an extra session of hemodialysis on 04/03 to get some extra fluid off. Patient stated that his pleuritic chest pain resolved on 04/02, but his daughter stated it was still present. Tmax for the duration was 101, and patient did not spike this temp since 06A on 04/03. Patient currently normothermic. He denies further complaints. Patient got a CXR and CT before discharge, and per Nephro, patient does not have excessive fluid that can be removed via dialysis that was causing his pleural effusions. - Date & Time of H&P Date of H&P: 04/01/17 Time of H&P: 23:50 Discharge Exam - Head Exam Head Exam: NORMAL INSPECTION - Additional Findings Additional findings: VS as below Constitutional: a&o x 4, nad Head and Neck: neck supple, no jvd, trachea midline, carotid midline, no cervical/head mass Eyes: jermaine, nonicteric sclera, eom intact ENT: auditory acuity grossly intact, throat not congested, no nasal deformity Cardio: rrr, no m/r/g, no carotid bruit, nml s1, s2 Pulm: no accessory muscle use, equal nml breath sounds bilaterally, ctab Abd:; s/nt/nd, nbs x 4 q, no palpable masses Derm: no rashes, no ulcers, no lesions Extr: no edema, no cyanosis, no calf tenderness, no lesions, no varicosities Neuro: cn II-XII grossly intact Discharge Plan - Discharge Medications Prescriptions: Amoxicillin/Clavulanate [Augmentin 250 MG-125 MG] 1 tab PO DAILY #7 tab Doxycycline Hyclate 100 mg PO BID #14 capsule - Follow Up Plan Condition: FAIR Disposition: HOME/ ROUTINE Patient education suggested?: Yes Additional Instructions: 1. Follow up with abdominal ultrasound outpatient 2. Follow up with Dr. Godwin 3. Follow up with Dr. Arrieta, [employer] 4. Limit fluids to 1.2 L 5. Continue Hemodialysis per Radiology Tech, Dr. Moncada 6. Call resident at [phone] for results of Chest X Ray and CT Abdomen Referrals: Kelechi Godwin MD [Primary Care Provider] - <Praful Reyes - Last Filed: 04/08/17 11:07> Provider - Provider Date of Admission: 04/03/17 14:11 Attending physician: Praful Reyes MD Primary care physician: Kelechi Godwin MD Hospital Course - Lab Results Lab Results: Most Recent Lab Values WBC 11.0 10^3/ul (4.5-11.0) 04/04/17 06:30 RBC 3.25 10^6/uL (3.5-6.1) L 04/04/17 06:30 Hgb 8.8 gm/dL (14.0-18.0) L 04/04/17 06:30 Hct 27.4 % (42.0-52.0) L 04/04/17 06:30 MCV 84.3 fL (80.0-105.0) 04/04/17 06:30 MCH 27.1 pg (25.0-35.0) 04/04/17 06:30 MCHC 32.1 g/dl (31.0-37.0) 04/04/17 06:30 RDW 14.8 % (11.5-14.5) H 04/04/17 06:30 Plt Count 363 10^3/uL (120.0-450.0) 04/04/17 06:30 MPV 9.8 fl (7.0-11.0) 04/04/17 06:30 Gran % 73.3 % (50.0-68.0) H 04/04/17 06:30 Lymph % (Auto) 12.3 % (22.0-35.0) L 04/04/17 06:30 Floyd % (Auto) 11.1 % (1.0-6.0) H 04/04/17 06:30 Eos % (Auto) 3.0 % (1.5-5.0) 04/04/17 06:30 Baso % (Auto) 0.3 % (0.0-3.0) 04/04/17 06:30 Gran # 8.08 (1.4-6.5) H 04/04/17 06:30 Lymph # 1.4 (1.2-3.4) 04/04/17 06:30 Floyd # 1.2 (0.1-0.6) H 04/04/17 06:30 Eos # 0.3 (0.0-0.7) 04/04/17 06:30 Baso # 0.03 K/mm3 (0.0-2.0) 04/04/17 06:30 pO2 49 mm/Hg (30-55) 04/02/17 06:30 VBG pH 7.39 (7.32-7.43) 04/02/17 06:30 VBG pCO2 53.0 (40-60) 04/02/17 06:30 VBG HCO3 32.1 mmol/l (21-28) H 04/02/17 06:30 VBG O2 Sat (Calc) 89.0 % (40-65) H 04/02/17 06:30 VBG Base Excess 5.7 mmol/L (0.0-2.0) H 04/02/17 06:30 Sodium 136 mmol/L (132-148) 04/04/17 06:30 Potassium 4.3 mmol/L (3.6-5.0) 04/04/17 06:30 Chloride 96 mmol/L (98-107) L 04/04/17 06:30 Carbon Dioxide 29 mmol/L (21-33) 04/04/17 06:30 Anion Gap 15 (10-20) 04/04/17 06:30 BUN 37 mg/dL (7-21) H 04/04/17 06:30 Creatinine 5.6 mg/dL (0.5-1.4) H 04/04/17 06:30 Est GFR ( Amer) 12 04/04/17 06:30 Est GFR (Non-Af Amer) 10 04/04/17 06:30 POC Glucose (mg/dL) 303 mg/dL (65-110) H 04/04/17 16:19 Random Glucose 210 mg/dL (70-110) H 04/04/17 06:30 Lactic Acid 0.6 mmol/L (0.7-2.1) L 04/02/17 06:30 Calcium 8.7 mg/dL (8.4-10.5) 04/04/17 06:30 Total Bilirubin 0.6 mg/dL (0.2-1.3) 04/04/17 06:30 AST 49 U/L (15-59) 04/04/17 06:30 ALT 12 U/L (7-56) 04/04/17 06:30 Alkaline Phosphatase 146 U/L (38-133) H 04/04/17 06:30 Troponin I < 0.01 ng/mL 04/02/17 06:30 Total Protein 7.0 g/dL (5.8-8.3) 04/04/17 06:30 Albumin 3.2 g/dL (3.0-4.8) 04/04/17 06:30 Globulin 3.8 gm/dL 04/04/17 06:30 Albumin/Globulin Ratio 0.8 (1.1-1.8) L 04/04/17 06:30 Procalcitonin 0.48 NG/ML (0.19-0.49) 04/02/17 08:00 Urine Color Yellow (YELLOW) 04/03/17 01:30 Urine Appearance Sl cloudy (CLEAR) 04/03/17 01:30 Urine pH 8.0 (4.7-8.0) 04/03/17 01:30 Ur Specific [place] 1.015 (1.005-1.035) 04/03/17 01:30 Urine Protein 100 mg/dL (<30 mg/dL) H 04/03/17 01:30 Urine Glucose (UA) 250 mg/dL (NEGATIVE) H 04/03/17 01:30 Urine Ketones Negative mg/dL (NEGATIVE) 04/03/17 01:30 Urine Blood Negative (NEGATIVE) 04/03/17 01:30 Urine Nitrate Negative (NEGATIVE) 04/03/17 01:30 Urine Bilirubin Negative (NEGATIVE) 04/03/17 01:30 Urine Urobilinogen 0.2 E.U./dL (<1 E.U./dL) 04/03/17 01:30 Ur Leukocyte Esterase Negative Shahana/uL (NEGATIVE) 04/03/17 01:30 Urine RBC 0 - 2 /hpf (0-2) 04/03/17 01:30 Urine WBC 0 - 2 /hpf (0-6) 04/03/17 01:30 Ur Epithelial Cells 0 - 2 /hpf (0-5) 04/03/17 01:30 YAMIL Screen Negative (Negative) 04/03/17 08:30 Proteinase 3 (PR3) <1.0 AI (<1.0) 04/04/17 06:30 Myeloperoxidase Ab <1.0 AI (<1.0) 04/04/17 06:30 Double Strand DNA Ab 9 IU/mL H 04/03/17 08:30 Complement C3 125.0 mg/dL (88.0-165.0) 04/03/17 08:30 Complement C4 41.4 mg/dL (14.0-44.0) 04/03/17 08:30 Ur L.pneumophila Ag Negative (NEGATIVE) 04/03/17 01:30 Attending/Attestation - Attestation I have personally seen and examined this patient.: Yes I have fully participated in the care of the patient.: Yes I have reviewed all pertinent clinical information, including history, physical exam and plan: Yes Notes (Text): 04/08/17 10:59 attending note; Patient seen and examined with resident. Patient is a 71 year old Male with PMH of HTN, HLD, Diabetes, diabetic neuropathy, CAD, ESRD (on hemodyalisis T/T/Sat), BPH, and GERD is admitted with low grade fever,and pleuritic chest pain. CT showed left-sided pleural effusion and pericardial effusion. Patient got HD on Monday, Monday/ extra treatments. currently denies any chest pain, shortness of breath. echocardiogram did not show any significant effusion. Reviewed with cardiology .. Cardiac enzymes 2 negative. Fever; Treated with doxycycline and Maxipime. ID evaluation appreciated. upon discharge the patient will follow-up with PMD . Patient will continue dialysis with Dr. Thomson. patient will follow-up with cardiology . hemodialysis today. CT abdomen and pelvis with by mouth contrast ordered by ID. chest x-ray ordered. Results pending. Patient's daughter wanted to follow up with PMD/ Pulmonary DR. Godwin. Case discussed with patient's daughter in detail. Diagnosis; volume overload pleural effusion fever
--- NOTE | 2017-04-04 19:04 | RAD ---
HISTORY: pleural effusion follow up COMPARISON: 04/01/2017 TECHNIQUE: Chest PA and lateral FINDINGS: LUNGS: There is a persistent moderate left and a small right pleural effusion. There is mild pulmonary venous congestion. PLEURA: No significant pleural effusion identified. No pneumothorax apparent. CARDIOVASCULAR: Normal. OSSEOUS STRUCTURES: No significant abnormalities. VISUALIZED UPPER ABDOMEN: Normal. OTHER FINDINGS: None. Persistent moderate left pleural effusion. Small right pleural effusion. Mild pulmonary venous congestion. IMPRESSION:
--- NOTE | 2017-04-04 21:19 | PN ---
DATE: SUBJECTIVE: The patient underwent hemodialysis today, following that he underwent fistulogram of the left upper extremity AV fistula with perianastomotic venous angioplasty. The patient had a chest pain and shortness of breath at this time. PHYSICAL EXAMINATION: VITAL SIGNS: Blood pressure 155/59, heart rate 94, temperature 98.9, respirations 18. HEENT: [place] conjunctivae. CHEST: Diminished breath sounds heard at the bases. HEART: S1 and S2 regular. No gallop or rub. ABDOMEN: Soft. EXTREMITIES: No edema. LABORATORY DATA: Hemoglobin and hematocrit 8.8 and 27.4, white count and platelet count are within normal limits. BUN of 37 and creatinine of 5.6, glucose 210. Official echocardiogram study report read by ____ small pericardial effusion which I do agree with. ASSESSMENT: 1. Small pericardial effusion at this time, following the patient's hemodialysis on presentation. 2. Bilateral pleural effusion. 3. End-stage renal disease on hemodialysis. 4. Uncontrolled diabetes mellitus. RECOMMENDATIONS: 1. Aspirin 81 mg once a day. 2. Coreg 12.5 mg once a day. 3. Cozaar 25 mg once a day. 4. IV Rocephin is 1 g daily. 5. The patient is scheduled to undergo chest x-ray today. [facility] at ____ [facility]. Bryan Carpenter MD
[2017-04-05] MEDS ORDERED: cefTRIAXone 1 gm 1 GM/100 ML BAG IVPB SCH (10:00)
[2017-04-06] MEDS ORDERED: Darbepoetin Alfa 60 mcg/ml Inj IVP SCH (07:00)
[2017-04-08] MEDS ORDERED: Darbepoetin Alfa 40 mcg/ml Inj IVP SCH (10:00)
== END 2017-04-04 07:00 | disposition home or self-care (01) | DRG 478 ==
LOC: ED 14:08 → ERH 19:42 → 2RNO 21:52 → OBSVTOIN 04-03 14:11
PROVIDERS: ADMIT Internal Medicine; ATTEND Internal Medicine
PROC: 5A1D60Z (ICD-10-PCS; 2017-04-03)
PROC: 05743ZZ Dilation of Left Innominate Vein, Percutaneous Approach (ICD-10-PCS; principal; 2017-04-04)
PROC: B50W1ZZ Plain Radiography of Dialysis Shunt/Fistula using Low Osmolar Contrast (ICD-10-PCS; 2017-04-04)
DX: I31.3 Pericardial effusion (noninflammatory) (principal); J90 Pleural effusion, not elsewhere classified; N25.81 Secondary hyperparathyroidism of renal origin; N18.6 End stage renal disease; I12.0 Hypertensive chronic kidney disease with stage 5 chronic kidney disease or end stage renal disease; E10.22 Type 1 diabetes mellitus with diabetic chronic kidney disease; J98.11 Atelectasis; E10.42 Type 1 diabetes mellitus with diabetic polyneuropathy; E10.65 Type 1 diabetes mellitus with hyperglycemia; T82.41XA Breakdown (mechanical) of vascular dialysis catheter, initial encounter; T82.858A Stenosis of other vascular prosthetic devices, implants and grafts, initial encounter; I51.7 Cardiomegaly; Z99.2 Dependence on renal dialysis; E78.5 Hyperlipidemia, unspecified; I25.10 Atherosclerotic heart disease of native coronary artery without angina pectoris; N40.0 Benign prostatic hyperplasia without lower urinary tract symptoms; K21.9 Gastro-esophageal reflux disease without esophagitis; Z87.891 Personal history of nicotine dependence; Z79.82 Long term (current) use of aspirin; Z79.899 Other long term (current) drug therapy; Z79.84 Long term (current) use of oral hypoglycemic drugs; Z79.4 Long term (current) use of insulin; D64.9 Anemia, unspecified; E83.39 Other disorders of phosphorus metabolism; I72.8 Aneurysm of other specified arteries